=== PATIENT | female | born 1925 | race Caucasian/White ===

== ENCOUNTER 2016-05-31 21:39 | Inpatient (IN) | payer MEDICARE, MEDICAID ==
[2016-05-31] MEDS ORDERED: NS 0.9% 1000 ML* 1,600 ML IV ONE (22:27)
[2016-05-31] MEDS ORDERED: Azithromycin IV(*) 500 MG in NS 0.9% 250 ML* 250 ML IVPB ONE (22:28)
[2016-05-31] MEDS ORDERED: cefTRIAXone(*) 1 GM in NS 0.9% 50 ML* 50 ML IVPB ONE (22:28)
--- NOTE | 2016-05-31 22:40 | RAD ---
INDICATION: Fever. COMPARISON: Comparison is made with a prior CT of the chest from March 02, 2016. TECHNIQUE: A portable view of the chest was obtained. FINDINGS: The heart is mildly enlarged and unchanged. There is a dual-chamber transvenous pacemaker present. The lungs are hyperinflated. There is mild prominence of the interstitial markings which are unchanged. No focal infiltrate or pleural effusion is seen. IMPRESSION: NO EVIDENCE FOR ACUTE DISEASE.
[2016-05-31 23:10] LABS: Urine Bacteria 2+ (Absent); Urine Bilirubin Negative (Negative); Urine Glucose Negative (Negative); Urine Nitrite Negative (Negative)
[2016-05-31 23:15] LABS: Hematocrit 35 % (35-47); Hemoglobin 11.4 g/dl (12.0-16.0); Mean Corpuscular HGB Conc 33 g/dl (31-36); Mean Corpuscular Hemoglobin 30 pg (27-31); Mean Corpuscular Volume 92 fL (80-97); Mean Platelet Volume 9 um3 (7.4-10.4); Red Blood Count 3.78 10^6/ul (4.0-5.4); Red Cell Distribution Width 16 % (10.5-15); White Blood Count 3.5 10^3/ul (3.5-10.8)
[2016-05-31 23:30] LABS: Albumin 3.1 g/dL (3.2-5.2); BUN/Creatinine Ratio 17.2 (8-20); Calcium 9.6 mg/dL (8.6-10.3); EGFR African American 56.6 (>60); Globulin 2.5 g/dL (2-4); Potassium 4.6 mmol/L (3.5-5.0); Total Bilirubin 0.8 mg/dL (0.2-1.0); Total Protein 5.6 g/dL (6.4-8.9)
[2016-05-31 23:39] LABS: Troponin I 0.05 ng/mL (<0.04)
[2016-06-01] MEDS ORDERED: Aspirin TAB* 325 MG PO ONE (00:42)
[2016-06-01] MEDS ORDERED: Azithromycin IV(*) 500 MG in NS 0.9% 250 ML* 250 ML IVPB ONE (00:42)
[2016-06-01] MEDS ORDERED: Docusate CAP* 100 MG PO PRN (00:45)
[2016-06-01] MEDS ORDERED: NS 0.9% 1000 ML* 1,000 ML IV SCH (00:45)
[2016-06-01] MEDS ORDERED: Ondansetron INJ* 2 MG/ML VIAL IV PRN (00:46)
[2016-06-01] MEDS ORDERED: Acetaminophen TAB* 325 MG PO ONE (01:02)
[2016-06-01] MEDS ORDERED: Acetaminophen TAB* 325 MG ONE (01:03)
[2016-06-01] MEDS: Acetaminophen TAB* 325 MG PO PRN ×3 (01:10→22:25)
[2016-06-01] MEDS ORDERED: NS 0.9% 1000 ML* 1,000 ML IV ONE ×4 (03:00→10:15)
--- NOTE | 2016-06-01 03:24 | HP ---
ADMISSION HISTORY AND PHYSICAL: DATE OF ADMISSION: 06/01/16 PRIMARY CARE PROVIDER: Dr. Brown. HEALTHCARE PROXY: Her neighbor, Betsy Jorge. CODE STATUS: Full, reviewed with healthcare proxy, ARLENE updated and placed on chart. SOURCE OF INFORMATION: History obtained from the patient's neighbor and healthcare proxy, Betsy, from the patient, and from past medical records. RELIABILITY: Good from Betsy, poor from the patient, and good from medical records. CHIEF COMPLAINT: Chills and rigors. HISTORY OF PRESENT ILLNESS: This is an 89-year-old female, past medical history of recurrent UTIs, hypertension, hyperlipidemia, had been in her usual state of health, seen by Betsy twice daily, provides ample amount of support for the patient while she is at home. She was seen at dinner time, at which time she consumed [place] con carne completed, made by Betsy, consumed the entire quantity without difficulty. She went to bed; however, around 7:30 developed chills and rigors. She called Betsy, who came and evaluated the patient, was noted to be having rigors, was diaphoretic, had a cough, and was dry heaving. Betsy found the patient to be in distress, activated EMS, brought the patient to [facility]. Much of the history and review of systems per the patient was difficult to obtain as the patient has severely difficulty hearing and not interested in participating in clinical exam, although is oriented and is not suffering from dementia. Only complaint the patient had was pain in her right flank. Additionally, Betsy relates that the patient has lost 20 pounds over the last 4 months unintentionally. PAST MEDICAL HISTORY: Includes CVA, GI bleed, recurrent UTIs, hypertension, hyperlipidemia, breast cancer, osteoporosis, very hard of hearing. MEDICATIONS: Reviewed from Betsy's list: 1. Lipitor 80 mg daily. 2. Toprol 50 mg twice daily. 3. Aspirin 81 mg daily. 4. Calcium and vitamin D combined tab. ALLERGIES: No known drug allergies. FAMILY HISTORY: History of CAD, hypertension, or diabetes. SOCIAL HISTORY: No tobacco, alcohol, or illicit's. Lives alone. REVIEW OF SYSTEMS: As indicated above right flank pain, chills with rigors, cough, and dry heaving; otherwise, difficult to obtain. PHYSICAL EXAMINATION GENERAL: Elderly woman, lying flat in bed with her head covered. She likes to sleep. She is in no apparent distress, asking to be left alone. VITAL SIGNS: When seen by this author, 113/46, heart rate is 63, 98% on 4 L, T- max in the emergency room 102. HEENT: Oropharynx is clear. Has moist mucous membranes. Sclerae are anicteric. LUNGS: Clear to auscultation, although the patient is not taking deep breaths. HEART: It is difficult to hear, though distant heart sounds. Regular rate and rhythm. ABDOMEN: Soft, has tenderness in the suprapubic area, nondistended. Positive bowel sounds. EXTREMITIES: Warm and well perfused without clubbing, cyanosis, or edema. NEUROLOGIC: According to Betsy, the patient is alert and oriented, although currently the patient declines to participate in orientation exam. DIAGNOSTIC STUDIES/LAB DATA: Labs reviewed: White blood cell count 3.5 with 97% neutrophils, hemoglobin 11.4, platelets 171. INR 1.1. Creatinine 1.16, lactic acid 3.8. AST 102, ALT 63, alk phos 58. Troponin 0.05. Urine positive for protein, blood, leuk esterase, white blood cells, squamous cells, epithelial cells, calcium oxalate crystals, bacteria, hyaline casts, and ascorbic acid. Data reviewed: Chest x-ray, no evidence for acute disease. EKG: Normal sinus rhythm, ventricular rate 66, left axis, late R-wave progression, biphasic T-waves in V4, T-wave inversion in V5 and V6, as well as lead I and aVL. ASSESSMENT AND PLAN: An 89-year-old female, past medical history as outlined above presenting with fevers, found with sepsis of unknown source. 1. Sepsis. Most likely urine versus lungs, with urine seemingly most likely with urinalysis and history of recurrent urinary tract infections. Additionally , must rule out influenza in the setting of high fevers and rigors. Suprapubic tenderness with concern for right flank pain may indicate pyelonephritis. I do not see any CT abdomen and pelvis at this point. Treat with ceftriaxone which will cover urine and lung sources with addition of azithromycin. If the patient fails to improve, consider a CT abdomen or right upper quadrant ultrasound in the setting of elevated transaminases. Finish second liter of bolus at this time and then place on 150 cc normal saline for another liter. 2. Elevated lactic acidosis in the setting of above, repeat in 1 hour from now. 3. Elevated troponin. Suspect in the setting of demand, although has T-wave inversions elevating some strain. Repeat next troponin in an hour for now. Aspirin 325 mg now. Continue metoprolol at home dose. 4. Transaminitis. Unclear etiology at this point. As above, can consider right upper quadrant ultrasound and start with repeat LFTs in the morning. 5. Acute kidney injury in the setting of infection. Fluid as above. Trend tomorrow, dose meds accordingly. 6. DVT prophylaxis. Heparin subcu. CC: Dr. Brown* [id number]/CPS #: [id number] [id number]
[2016-06-01] MEDS: Heparin VIAL(*) 5000 UNITS/ML VIAL (FIVE THOUSAND) SUBCUT SCH ×3 (05:54→21:50)
[2016-06-01 06:15] LABS: Hematocrit 29 % (35-47); Hemoglobin 9.6 g/dl (12.0-16.0); Mean Corpuscular HGB Conc 33 g/dl (31-36); Mean Corpuscular Hemoglobin 30 pg (27-31); Mean Corpuscular Volume 92 fL (80-97); Mean Platelet Volume 9 um3 (7.4-10.4); Red Blood Count 3.19 10^6/ul (4.0-5.4); Red Cell Distribution Width 16 % (10.5-15); White Blood Count 22.3 10^3/ul (3.5-10.8)
[2016-06-01 06:20] LABS: Add Diff/Slide Review? Slide Review Added; Comments Flag Yes
[2016-06-01 06:39] LABS: Immature Granulocytes 24 % (0-9); Macrocytosis 1+; Microcytosis 1+; Neutrophil % 69 % (38-83)
[2016-06-01 06:48] LABS: Albumin 2.5 g/dL (3.2-5.2); BUN/Creatinine Ratio 16.7 (8-20); Calcium 8.4 mg/dL (8.6-10.3); Direct Bilirubin 0.2 mg/dL (0.03-0.18); EGFR African American 48.7 (>60); EGFR Non-African American 37.9 (>60); Globulin 1.9 g/dL (2-4); Indirect Bilirubin 0.3 mg/dL (0.3-1.0); Potassium 4.2 mmol/L (3.5-5.0); Total Bilirubin 0.5 mg/dL (0.2-1.0); Total Protein 4.4 g/dL (6.4-8.9)
--- NOTE | 2016-06-01 06:51 | ED ---
Chel, DoctorAna María scribed for Tess Huertas MD on 06/01/16 at 0145 . Complex/Multi-Sys Presentation - HPI Summary HPI Summary: 89 year old female arrived to [facility] c/o chills and nausea beginning at 20:00 on 05/31/2016. She further reported general weakness (similar to baseline), and has been dry-heaving (but no vomiting); she has also been sneezing frequently since arrival to [facility]. She denies any SOB, coughing, or substantial weakness beyond baseline. She has PMHx of a CVA in December 2015, PMHx of breast cancer and a Pacemaker. HPI provided by pt's band lining bander. - History Of Current Complaint Chief Complaint: EDBackInjuryPain Time Seen by Provider: 05/31/16 22:08 Hx Obtained From: Patient, Family/Wind Turbine Performance Engineer Onset/Duration: Gradual Onset, Still Present Timing: Hours Severity Currently: Moderate Severity Initially: Moderate Associated Signs And Symptoms: Positive: Weakness, Nausea, Fever, Other - Chills. Negative: SOB, Cough, Vomiting - Dry-heaving, no vomiting - Allergies/Home Medications Allergies/Adverse Reactions: Allergies Allergy/AdvReac Type Severity Reaction Status Date / Time No Known Drug Allergy Allergy See Comment Verified 02/11/15 11:38 PACEMAKER NO MRI Allergy PACEMAKER Uncoded 01/03/15 13:18 PMH/Surg Hx/FS Hx/Imm Hx Endocrine/Hematology History: Denies: Hx Diabetes, Hx Thyroid Disease Cardiovascular History: Reports: Hx Angina, Hx Auto Implanted Cardiovert Defib, Hx Hypercholesterolemia, Hx Hypertension, Hx Pacemaker/ICD, Other Cardiovascular Problems/Disorders - Bradycardia. Denies: Hx Congestive Heart Failure, Hx Coronary Artery Disease, Hx Myocardial Infarction, Hx Valvular Heart Disease Respiratory History: Denies: Hx Asthma, Hx Chronic Obstructive Pulmonary Disease (COPD) GI History: Reports: Hx Hiatal Hernia Denies: Hx Jaundice, Hx Ulcer History: Reports: Hx Kidney Stones Denies: Hx Renal Disease Musculoskeletal History: Reports: Hx Osteoporosis Sensory History: Reports: Hx Contacts or Glasses, Hx Hearing Aid, Hx Hearing Problem Denies: Hx Cataracts, Hx Eye Injury, Hx Eye Prosthesis, Hx Glaucoma, Hx Legally Blind, Hx Macular Degeneration, Hx Vision Problem, Hx Deafness, Other Sensory Impairments Opthamlomology History: Reports: Hx Contacts or Glasses Denies: Hx Cataracts, Hx Eye Injury, Hx Eye Prosthesis, Hx Glaucoma, Hx Legally Blind, Hx Macular Degeneration, Hx Vision Problem, Other Sensory Impairments Neurological History: Reports: Hx Dementia Psychiatric History: Reports: Hx Depression - Cancer History Cancer Type, Location and Year: BREAST Hx Chemotherapy: No Hx Radiation Therapy: No - Surgical History Surgery Procedure, Year, and Place: hiatal hernia - surgical repair. RIGHT BREAST MASTECTOMY. hysterectomy - Immunization History Date of Influenza Vaccine: 12/17/15 Infectious Disease History: No Infectious Disease History: Denies: Hx Clostridium Difficile, Hx Hepatitis, Hx Human Immunodeficiency Virus (HIV), Hx of Known/Suspected MRSA, Hx Shingles, Hx Tuberculosis, History Other Infectious Disease, Traveled Outside the [place] in Last 30 Days - Family History Known Family History: Positive: Cardiac Disease - CAD - Social History Lives: Alone Alcohol Use: None Hx Substance Use: No Substance Use Type: Reports: None Hx Tobacco Use: No Smoking Status (MU): Never Smoked Tobacco Review of Systems Positive: Fever, Chills Negative: Shortness Of Breath, Cough Positive: Nausea. Negative: Vomiting - Dry-heaving Positive: Weakness - generalized weakness All Other Systems Reviewed And Are Negative: Yes Physical Exam Triage Information Reviewed: Yes Vital Signs On Initial Exam: Initial Vitals Temp Pulse Resp BP Pulse Ox 102 F 66 16 112/38 92 05/31/16 21:59 05/31/16 21:59 05/31/16 21:59 05/31/16 21:59 05/31/16 21:59 Vital Signs Reviewed: Yes Appearance: Positive: Well-Appearing, No Pain Distress Skin: Positive: Warm, Skin Color Reflects Adequate Perfusion, Dry Eyes: Positive: EOMI, VELASQUEZ ENT: Positive: Pharynx normal, TMs normal Neck: Positive: Supple, Nontender Respiratory/Lung Sounds: Positive: Clear to Auscultation, Breath Sounds Present. Negative: Rales, Rhonchi, Wheezes Cardiovascular: Positive: RRR. Negative: Murmur, Rub Abdomen Description: Positive: Nontender, Soft. Negative: Distended, Guarding Bowel Sounds: Positive: Present Musculoskeletal: Positive: Strength/ROM Intact. Negative: Edema Left, Edema Right Neurological: Positive: Sensory/Motor Intact, Alert, Oriented to Person Place, Time, CN Intact II-III Psychiatric: Positive: Affect/Mood Appropriate Diagnostics - Vital Signs Vital Signs Temp Pulse Resp BP Pulse Ox 05/31/16 21:59 102 F 66 16 112/38 92 - Laboratory Lab Results: Lab Results 05/31/16 05/31/16 05/31/16 Range/Units 22:50 23:00 23:00 WBC 3.5 (3.5-10.8) 10^3/ul RBC 3.78 L (4.0-5.4) 10^6/ul Hgb 11.4 L (12.0-16.0) g/dl Hct 35 (35-47) % MCV 92 (80-97) fL MCH 30 (27-31) pg MCHC 33 (31-36) g/dl RDW 16 H (10.5-15) % Plt Count 171 (150-450) 10^3/ul MPV 9 (7.4-10.4) um3 Neut % (Auto) 96.9 H (38-83) % Lymph % (Auto) 2.2 L (25-47) % [place] % (Auto) 0.4 L (1-9) % Eos % (Auto) 0.1 (0-6) % Baso % (Auto) 0.4 (0-2) % Absolute Neuts (auto) 3.4 (1.5-7.7) 10^3/ul Absolute Lymphs (auto) 0.1 L (1.0-4.8) 10^3/ul Absolute Monos (auto) 0 (0-0.8) 10^3/ul Absolute Eos (auto) 0 (0-0.6) 10^3/ul Absolute Basos (auto) 0 (0-0.2) 10^3/ul Absolute Nucleated RBC 0 10^3/ul Nucleated RBC % 0.1 INR (Anticoag Therapy) 1.10 (0.89-1.11) APTT 29.4 (26.0-36.3) seconds Sodium (133-145) mmol/L Potassium (3.5-5.0) mmol/L Chloride (101-111) mmol/L Carbon Dioxide (22-32) mmol/L Anion Gap (2-11) mmol/L BUN (6-24) mg/dL Creatinine (0.51-0.95) mg/dL Est GFR ( Amer) (>60) Est GFR (Non-Af Amer) (>60) BUN/Creatinine Ratio (8-20) Glucose (70-100) mg/dL Lactic Acid (0.5-2.0) mmol/L Calcium (8.6-10.3) mg/dL Total Bilirubin (0.2-1.0) mg/dL AST (13-39) U/L ALT (7-52) U/L Alkaline Phosphatase (34-104) U/L Troponin I (<0.04) ng/mL Total Protein (6.4-8.9) g/dL Albumin (3.2-5.2) g/dL Globulin (2-4) g/dL Albumin/Globulin Ratio (1-3) Urine Color Lorenza Urine Appearance Cloudy Urine pH 6.0 (5-9) Ur Specific [place] 1.014 (1.010-1.030) Urine Protein 2+(100 mg/dl) H (Negative) Urine Ketones Negative (Negative) Urine Blood 1+ H (Negative) Urine Nitrate Negative (Negative) Urine Bilirubin Negative (Negative) Urine Urobilinogen Negative (Negative) Ur Leukocyte Esterase 3+ H (Negative) Urine WBC (Auto) 3+(>20/hpf) H (Absent) Urine RBC (Auto) 3+(>10/hpf) H (Absent) Ur Squamous Epith Cells Present H (Absent) Calcium Oxalate Crystal Present H (Absent) Amorphous Crystals Present H (Absent) Urine Bacteria 2+ H (Absent) Hyaline Casts Present H (Absent) Urine Glucose Negative (Negative) Urine Ascorbic Acid * H (Negative) 05/31/16 05/31/16 Range/Units 23:00 23:00 WBC (3.5-10.8) 10^3/ul RBC (4.0-5.4) 10^6/ul Hgb (12.0-16.0) g/dl Hct (35-47) % MCV (80-97) fL MCH (27-31) pg MCHC (31-36) g/dl RDW (10.5-15) % Plt Count (150-450) 10^3/ul MPV (7.4-10.4) um3 Neut % (Auto) (38-83) % Lymph % (Auto) (25-47) % [place] % (Auto) (1-9) % Eos % (Auto) (0-6) % Baso % (Auto) (0-2) % Absolute Neuts (auto) (1.5-7.7) 10^3/ul Absolute Lymphs (auto) (1.0-4.8) 10^3/ul Absolute Monos (auto) (0-0.8) 10^3/ul Absolute Eos (auto) (0-0.6) 10^3/ul Absolute Basos (auto) (0-0.2) 10^3/ul Absolute Nucleated RBC 10^3/ul Nucleated RBC % INR (Anticoag Therapy) (0.89-1.11) APTT (26.0-36.3) seconds Sodium 135 (133-145) mmol/L Potassium 4.6 (3.5-5.0) mmol/L Chloride 104 (101-111) mmol/L Carbon Dioxide 23 (22-32) mmol/L Anion Gap 8 (2-11) mmol/L BUN 20 (6-24) mg/dL Creatinine 1.16 H (0.51-0.95) mg/dL Est GFR ( Amer) 56.6 (>60) Est GFR (Non-Af Amer) 44.0 (>60) BUN/Creatinine Ratio 17.2 (8-20) Glucose 105 H (70-100) mg/dL Lactic Acid 3.8 H* (0.5-2.0) mmol/L Calcium 9.6 (8.6-10.3) mg/dL Total Bilirubin 0.80 (0.2-1.0) mg/dL AST 102 H (13-39) U/L ALT 63 H (7-52) U/L Alkaline Phosphatase 58 (34-104) U/L Troponin I 0.05 H* (<0.04) ng/mL Total Protein 5.6 L (6.4-8.9) g/dL Albumin 3.1 L (3.2-5.2) g/dL Globulin 2.5 (2-4) g/dL Albumin/Globulin Ratio 1.2 (1-3) Urine Color Urine Appearance Urine pH (5-9) Ur Specific [place] (1.010-1.030) Urine Protein (Negative) Urine Ketones (Negative) Urine Blood (Negative) Urine Nitrate (Negative) Urine Bilirubin (Negative) Urine Urobilinogen (Negative) Ur Leukocyte Esterase (Negative) Urine WBC (Auto) (Absent) Urine RBC (Auto) (Absent) Ur Squamous Epith Cells (Absent) Calcium Oxalate Crystal (Absent) Amorphous Crystals (Absent) Urine Bacteria (Absent) Hyaline Casts (Absent) Urine Glucose (Negative) Urine Ascorbic Acid (Negative) Result Diagrams: 06/01/16 05:49 06/01/16 05:49 Lab Statement: Any lab studies that have been ordered have been reviewed, and results considered in the medical decision making process. - Radiology Chest X-Ray Radiology Interpretation Completed By: Radiologist - IMPRESSION: NO EVIDENCE FOR ACUTE DISEASE. Complex Multi-Symp Course/Dx Course Of Treatment: pt presented meeting sepsis criteria 30 cc/kg of fluids and IV abx ordered pt admitted by - Diagnoses Provider Diagnoses: Sepsis - Physician Notifications Discussed Care Of Patient With: 23:00 - discussed care of pt with Dr. Hines ( hospitalist). Agrees to admit pt. Discharge - Discharge Plan Condition: Guarded Disposition: ADMITTED TO [facility] The documentation as recorded by the Doctor ferraro Tahera accurately reflects the service I personally performed and the decisions made by , Tess Huertas MD.
[2016-06-01 07:10] LABS: Troponin I 0.07 ng/mL (<0.04)
[2016-06-01] MEDS ORDERED: Metoprolol Tartrate TAB* 50 mg PO SCH (09:00)
[2016-06-01] MEDS: Aspirin EC Low Dose* 81 MG TAB.EC PO SCH (10:10)
--- NOTE | 2016-06-01 13:34 | PN ---
Subjective Date of Service: 06/01/16 Interval History: No specific c/o. States she needs to go the [facility]. Objective Active Medications: Acetaminophen (Tylenol Tab*) 650 mg PO Q6H PRN PRN Reason: PAIN Last Admin: 06/01/16 10:42 Dose: 650 mg Aspirin (Aspirin Ec Low Dose*) 81 mg PO DAILY [facility] Last Admin: 06/01/16 10:10 Dose: 81 mg Atorvastatin Calcium (Lipitor*) 80 mg PO QPM [facility] Docusate Sodium (Colace Cap*) 100 mg PO DAILY PRN PRN Reason: CONSTIPATION Heparin Sodium (Porcine) (Heparin Vial(*)) 5,000 units SUBCUT Q8HR [facility] Last Admin: 06/01/16 05:54 Dose: 5,000 units Azithromycin 250 mg/ Sodium (Chloride) 250 mls @ 250 mls/hr IVPB Q24H [facility] Ceftriaxone Sodium 1,000 mg/ (Sodium Chloride) 50 mls @ 200 mls/hr IVPB Q24H [facility] Metoprolol Tartrate (Lopressor Tab*) 50 mg PO BID [facility] Last Admin: 06/01/16 08:21 Dose: Not Given Ondansetron HCl (Zofran Inj*) 4 mg IV Q4H PRN PRN Reason: NAUSEA/VOMITING Vital Signs 06/01/16 06/01/16 06/01/16 02:51 03:00 03:29 Temperature 98.2 F 98.2 F Pulse Rate 60 60 Respiratory 20 20 Rate Blood Pressure 85/39 74/38 85/39 (mmHg) O2 Sat by Pulse 92 92 Oximetry 06/01/16 06/01/16 06/01/16 04:05 06:37 07:51 Temperature 99.4 F Pulse Rate 60 60 Respiratory 18 Rate Blood Pressure 78/38 80/38 79/35 (mmHg) O2 Sat by Pulse 96 Oximetry 06/01/16 10:15 Temperature Pulse Rate Respiratory Rate Blood Pressure 80/40 (mmHg) O2 Sat by Pulse Oximetry Oxygen Devices in Use Now: Nasal Cannula Appearance: Alert, supine in bed. In fair spirits. Sl agitated, states she needs to go the [facility]. Eyes: No Scleral Icterus Neck: NL Appearance and Movements; NL JVP, No Thyroid Enlargement, Masses Respiratory: Symmetrical Chest Expansion and Respiratory Effort, Clear to Auscultation, Clear to Percussion, - - Tachypneic Cardiovascular: NL Sounds; No Murmurs; No JVD, RRR, No Edema, - Abdominal: NL Sounds; No Tenderness; No Distention, No Hepatosplenomegaly, - Extremities: No Edema, No Clubbing, Cyanosis, - Skin: No Rash or Ulcers, No Nodules or Sclerosis, - Neurological: Alert and Oriented x 3, NL Sensation Result Diagrams: 06/01/16 05:49 06/01/16 05:49 Additional Lab and Data: Lab Results 05/31/16 05/31/16 05/31/16 Range/Units 22:50 23:00 23:00 WBC 3.5 (3.5-10.8) 10^3/ul RBC 3.78 L (4.0-5.4) 10^6/ul Hgb 11.4 L (12.0-16.0) g/dl Hct 35 (35-47) % MCV 92 (80-97) fL MCH 30 (27-31) pg MCHC 33 (31-36) g/dl RDW 16 H (10.5-15) % Plt Count 171 (150-450) 10^3/ul MPV 9 (7.4-10.4) um3 Neut % (Auto) 96.9 H (38-83) % Lymph % (Auto) 2.2 L (25-47) % [place] % (Auto) 0.4 L (1-9) % Eos % (Auto) 0.1 (0-6) % Baso % (Auto) 0.4 (0-2) % Absolute Neuts (auto) 3.4 (1.5-7.7) 10^3/ul Absolute Lymphs (auto) 0.1 L (1.0-4.8) 10^3/ul Absolute Monos (auto) 0 (0-0.8) 10^3/ul Absolute Eos (auto) 0 (0-0.6) 10^3/ul Absolute Basos (auto) 0 (0-0.2) 10^3/ul Absolute Nucleated RBC 0 10^3/ul Nucleated RBC % 0.1 INR (Anticoag Therapy) 1.10 (0.89-1.11) APTT 29.4 (26.0-36.3) seconds Sodium (133-145) mmol/L Potassium (3.5-5.0) mmol/L Chloride (101-111) mmol/L Carbon Dioxide (22-32) mmol/L Anion Gap (2-11) mmol/L BUN (6-24) mg/dL Creatinine (0.51-0.95) mg/dL Est GFR ( Amer) (>60) Est GFR (Non-Af Amer) (>60) BUN/Creatinine Ratio (8-20) Glucose (70-100) mg/dL Lactic Acid (0.5-2.0) mmol/L Calcium (8.6-10.3) mg/dL Total Bilirubin (0.2-1.0) mg/dL AST (13-39) U/L ALT (7-52) U/L Alkaline Phosphatase (34-104) U/L Troponin I (<0.04) ng/mL Total Protein (6.4-8.9) g/dL Albumin (3.2-5.2) g/dL Globulin (2-4) g/dL Albumin/Globulin Ratio (1-3) Urine Color Lorenza Urine Appearance Cloudy Urine pH 6.0 (5-9) Ur Specific [place] 1.014 (1.010-1.030) Urine Protein 2+(100 mg/dl) H (Negative) Urine Ketones Negative (Negative) Urine Blood 1+ H (Negative) Urine Nitrate Negative (Negative) Urine Bilirubin Negative (Negative) Urine Urobilinogen Negative (Negative) Ur Leukocyte Esterase 3+ H (Negative) Urine WBC (Auto) 3+(>20/hpf) H (Absent) Urine RBC (Auto) 3+(>10/hpf) H (Absent) Ur Squamous Epith Cells Present H (Absent) Calcium Oxalate Crystal Present H (Absent) Amorphous Crystals Present H (Absent) Urine Bacteria 2+ H (Absent) Hyaline Casts Present H (Absent) Urine Glucose Negative (Negative) Urine Ascorbic Acid * H (Negative) 05/31/16 05/31/16 Range/Units 23:00 23:00 WBC (3.5-10.8) 10^3/ul RBC (4.0-5.4) 10^6/ul Hgb (12.0-16.0) g/dl Hct (35-47) % MCV (80-97) fL MCH (27-31) pg MCHC (31-36) g/dl RDW (10.5-15) % Plt Count (150-450) 10^3/ul MPV (7.4-10.4) um3 Neut % (Auto) (38-83) % Lymph % (Auto) (25-47) % [place] % (Auto) (1-9) % Eos % (Auto) (0-6) % Baso % (Auto) (0-2) % Absolute Neuts (auto) (1.5-7.7) 10^3/ul Absolute Lymphs (auto) (1.0-4.8) 10^3/ul Absolute Monos (auto) (0-0.8) 10^3/ul Absolute Eos (auto) (0-0.6) 10^3/ul Absolute Basos (auto) (0-0.2) 10^3/ul Absolute Nucleated RBC 10^3/ul Nucleated RBC % INR (Anticoag Therapy) (0.89-1.11) APTT (26.0-36.3) seconds Sodium 135 (133-145) mmol/L Potassium 4.6 (3.5-5.0) mmol/L Chloride 104 (101-111) mmol/L Carbon Dioxide 23 (22-32) mmol/L Anion Gap 8 (2-11) mmol/L BUN 20 (6-24) mg/dL Creatinine 1.16 H (0.51-0.95) mg/dL Est GFR ( Amer) 56.6 (>60) Est GFR (Non-Af Amer) 44.0 (>60) BUN/Creatinine Ratio 17.2 (8-20) Glucose 105 H (70-100) mg/dL Lactic Acid 3.8 H* (0.5-2.0) mmol/L Calcium 9.6 (8.6-10.3) mg/dL Total Bilirubin 0.80 (0.2-1.0) mg/dL AST 102 H (13-39) U/L ALT 63 H (7-52) U/L Alkaline Phosphatase 58 (34-104) U/L Troponin I 0.05 H* (<0.04) ng/mL Total Protein 5.6 L (6.4-8.9) g/dL Albumin 3.1 L (3.2-5.2) g/dL Globulin 2.5 (2-4) g/dL Albumin/Globulin Ratio 1.2 (1-3) Urine Color Urine Appearance Urine pH (5-9) Ur Specific [place] (1.010-1.030) Urine Protein (Negative) Urine Ketones (Negative) Urine Blood (Negative) Urine Nitrate (Negative) Urine Bilirubin (Negative) Urine Urobilinogen (Negative) Ur Leukocyte Esterase (Negative) Urine WBC (Auto) (Absent) Urine RBC (Auto) (Absent) Ur Squamous Epith Cells (Absent) Calcium Oxalate Crystal (Absent) Amorphous Crystals (Absent) Urine Bacteria (Absent) Hyaline Casts (Absent) Urine Glucose (Negative) Urine Ascorbic Acid (Negative) Microbiology and Other Data: Microbiology 06/01/16 03:15 Nasal Screen MRSA (PCR)(YESIKA) - Final Nasal Mrsa Negative Assess/Plan/Problems-Billing Assessment: - Patient Problems (1) Sepsis Current Visit: No Status: Acute Comment: Elevated WBC, hypotension. Three bottles growing GNB. BUN and creat both higher today. Severe sepsis due to bacteremia. Source of bacteremia unknown. (2) ERASMO (acute kidney injury) Current Visit: Yes Status: Acute Code(s): N17.9 - ACUTE KIDNEY FAILURE, UNSPECIFIED SNOMED Code(s): 50024612 Comment: Rising BUN and creatinine. Likely needs more fluids. ? pressors. (3) Abnormal LFTs Current Visit: Yes Status: Acute Code(s): R79.89 - OTHER SPECIFIED ABNORMAL FINDINGS OF BLOOD CHEMISTRY SNOMED Code(s): 314817569 Comment: Better today. Low albumin despite deydration ? malnutriiton vs liver disease. Status and Disposition: Transfer to ICU 06/01. Discussed with Dr. Will.
--- NOTE | 2016-06-01 13:52 | CONSULT ---
Consult Consult: CRITICAL CARE MEDICINE DATE: 06/01/16 TIME: 1330 REFERRING PROVIDER: Jessica REASON/CHIEF COMPLAINT: severe sepsis HISTORY OF PRESENT ILLNESS: 89 F with h/o utis (recently proteus and ecoli) presenting with sepsis on admission sec to uti. BC with GNR. wbc escalating with further decline in Cr clearance despite IVF and now with declining BP and concerns for dysregulated response to infection and furthering her severe sepsis syndrome. REVIEW OF SYSTEMS: As per HPI. PAST MEDICAL HISTORY: As per HPI. HTN, Lipids, CVA, breast CA, GI bleed and hearing impairment MEDICATIONS: Reviewed. ALLERGIES: NKDA SOCIAL HISTORY: Reviewed. Has caregiver FAMILY HISTORY: Noncontributory at present. PHYSICAL EXAM: Vital Signs: Reviewed. Neurologic: awake, difficulty hearing HEENT: anicteric Cardiovascular: pacer noted, distant, nelida Respiratory: dec bs with mild labor Abdomen: soft, obese Extremities: cool to touch, no edema Access: piv LABS: Reviewed. IMAGING: Reviewed. MEDICATIONS: Reviewed. ASSESSMENT: 89 F Severe sepsis sec to uti, likely ecoli, present on admission lactic acidosis present on admission acute renal failure demand cardiac ischemia PLAN: Neurologic: hearing is an obstacle Cardiovascular: low end perfusion, giving additional fluid boluses but best to place central access and start early levophed if needed to help support perfusion pressures. Will place picc - although has pacer and opposite extremity restriction post breast ca - utlilize midline for vasopressors if needed and would prefer early use and short course. Levo concentration 4mg in 250ml. If needing long course or high strength then would need upgrade. Respiratory: sat ok but may need supportive O2 to limit any wob at this interval. don't need to fall behind with her reserve. Gastrointestinal: diet ok for now. Renal/Metabolic: check renal us to r/o pylo dynamics as she has had recurrent utis; weight loss. Infectious Disease: on C3. previous cultures here have been susceptible. She does not look overtly toxic to indicate abx failure at present, more dysregulation of inflammatory response. can consider additional bactericidal gram neg coverage if not improving. Continued C3. Hematology: she did hemodiluted some and plt down with consumption as well. f/u Endocrine: would treat for adrenal insuff with stress dose steroid needs in association with sepsis and hopefully avoid vasopressors Musculoskeletal: deconditioned. will need pt Psych/Social: social f/u Supportive and preventative care as ordered. SUP: po VTE prophylaxis: heparin Disposition: ICU with hospitalists and icu consult Code Status: Full presently Critical Care Time: 45min FJohnson Will DO
[2016-06-01] MEDS ORDERED: Norepinephrine 16MCG/ML IVPRE* 4,000 MCG/250 ML BAG IV ONE (14:18)
[2016-06-01] MEDS: Hydrocortisone INJ* 100 MG VIAL IV SCH ×2 (14:51→21:50)
[2016-06-01] MEDS: NS 0.9% 1000 ML* 2,000 ML IV ONE ×2 (14:52→15:54)
[2016-06-01] MEDS ORDERED: Aztreonam (*) 1 GM in NS 0.9% 50 ML* 50 ML IVPB ONE ×2 (15:00→17:00)
[2016-06-01] MEDS ORDERED: Morphine INJ* 2 MG/ML 1 ML SYRINGE IV PRN (15:45)
--- NOTE | 2016-06-01 15:45 | PN ---
Progress Note - Progress Note Note: CRITICAL CARE MEDICINE DATE: 06/01/16 TIME: 1530 d/w caregiver/proxy. We discussed pt dx adn care. She is clear on pts wishes. We discussed and completed molst as limited interventions, as DNR/DNI, trail NIV if provider thought there was a benefit, which I explained currently there is not. We discussed utilizing HFO2 and already using levophed. If she can turn the corner in the next 6 hours then we may have an oppurtunity for recovery , however if only worsening tonight despite these efforts then would look to maintain her comfort. Proxy in complete agreement. Molst reflective. Code Status: DNR/DNI Critical Care Time: 15min Blanco Will, DO
--- NOTE | 2016-06-01 16:15 | RAD ---
INDICATION: Right flank pain. UTI. Pyelonephritis COMPARISON: None TECHNIQUE: Longitudinal and transverse scans of the kidneys were obtained. FINDINGS: Kidneys: The right kidney measures 11.0 x 4.3 x 5.1 cm. There is a 1.1 cm cyst in the superior pole region. There is a 0.6 cm calculus in the renal pelvis. There is mild prominence of the central collecting system with no blane hydronephrosis. The left kidney appears normal and measures 10.3 x 5.2 x 4.0 cm. IMPRESSION: 0.6 cm right renal calculus with mild dilatation central collecting system.
[2016-06-01] MEDS: Atorvastatin* 80 MG TAB PO SCH (17:39)
[2016-06-01] MEDS: Norepinephrine 16MCG/ML IVPRE* 4,000 MCG/250 ML BAG IV SCH ×2 (18:58→23:04)
[2016-06-01] MEDS: cefTRIAXone VIAL(*) 1,000 MG in NS 0.9% 50 ML* 50 ML IVPB SCH (23:04)
[2016-06-02] MEDS ORDERED: Azithromycin IV(*) 250 MG in NS 0.9% 250 ML* 250 ML IVPB SCH (01:00)
[2016-06-02] MEDS: Hydrocortisone INJ* 100 MG VIAL IV SCH ×4 (02:18→19:55)
[2016-06-02] MEDS ORDERED: NS 0.9% 1000 ML* 1,000 ML IV SCH (02:45)
[2016-06-02] MEDS: Norepinephrine 16MCG/ML IVPRE* 4,000 MCG/250 ML BAG IV SCH (03:40)
[2016-06-02] MEDS: Heparin VIAL(*) 5000 UNITS/ML VIAL (FIVE THOUSAND) SUBCUT SCH ×3 (05:33→22:32)
[2016-06-02] MEDS: Acetaminophen TAB* 325 MG PO PRN ×2 (05:34→19:55)
[2016-06-02 06:31] LABS: Hematocrit 34 % (35-47); Hemoglobin 10.5 g/dl (12.0-16.0); Mean Corpuscular HGB Conc 31 g/dl (31-36); Mean Corpuscular Hemoglobin 30 pg (27-31); Mean Corpuscular Volume 94 fL (80-97); Mean Platelet Volume 10 um3 (7.4-10.4); Red Blood Count 3.55 10^6/ul (4.0-5.4); Red Cell Distribution Width 17 % (10.5-15); White Blood Count 36.1 10^3/ul (3.5-10.8)
[2016-06-02 06:34] LABS: Add Diff/Slide Review? Slide Review Added; Comments Flag Yes
[2016-06-02 06:44] LABS: ALT 54 U/L (7-52); Albumin 2.5 g/dL (3.2-5.2); Alkaline Phosphatase 54 U/L (34-104); BUN/Creatinine Ratio 26.4 (8-20); Blood Urea Nitrogen 28 mg/dL (6-24); CO2 Carbon Dioxide 15 mmol/L (22-32); Calcium 7.6 mg/dL (8.6-10.3); Chloride 115 mmol/L (101-111); EGFR African American 62.8 (>60); EGFR Non-African American 48.8 (>60); Globulin 2.4 g/dL (2-4); Glucose 120 mg/dL (70-100); Magnesium 1.5 mg/dL (1.9-2.7); Phosphorus 2.7 mg/dL (2.5-5.0); Sodium 137 mmol/L (133-145); Total Protein 4.9 g/dL (6.4-8.9)
[2016-06-02 08:08] LABS: Immature Granulocytes 13 % (0-9); Neutrophil % 87 % (38-83)
[2016-06-02 08:10] LABS: Burr Cells 1+; Hypochromasia 1+
--- NOTE | 2016-06-02 09:04 | PN ---
Progress Note - Progress Note Note: Progress Note Critical Care 24 hour events/significant events: -admitted 05/31 for severe sepsis, upgraded for shock -made DNR/DNI yesterday as per family/molst -overnight slightly less req of pressors, remains on levophed 6mcg/min -awake, alert, hard of hearing; denies any sob/cp/n/v/headache/abd discomfort. -remains on hiflow 100% 15lpm -afebrile, slow improvement in bp; no arterial line in place. -atrial paced rhythm; noted to have 6 beats nsvt overnight. Vitals: Tmax 99.6 Vital Signs Temp 98.3 F 06/02/16 08:00 Pulse 60 06/02/16 08:00 Resp 21 06/02/16 08:00 BP 108/45 06/02/16 08:00 Pulse Ox 100 06/02/16 08:00 Intake & Output 06/01/16 06/02/16 06/02/16 18:59 06:59 18:59 Intake Total 0 2064 Output Total 645 Balance 2120 1419 Intake: IV Fluids 1999 1322 Antibiotics 115 LR 925 NS (0.9%) 1999 282 Medicated IV 742 CC - Norepinephrine/ 742 Levophed Oral 120 Output: Nassar 645 Other: Date of Last Bowel 06/01/16 Movement # Bowel Movements 1 Estimated Stool Amount Medium O2/Vent: hiflow 100% 15lpm; sat 100%, rr 18 Infusions: Levophed 6mcg/min; NS infusion 100cc/hour Medications: Current Medications Acetaminophen (Tylenol Tab*) 650 mg PO Q6H PRN PRN Reason: PAIN Last Admin: 06/02/16 05:34 Dose: 650 mg Aspirin (Aspirin Ec Low Dose*) 81 mg PO DAILY [facility] Last Admin: 06/01/16 10:10 Dose: 81 mg Atorvastatin Calcium (Lipitor*) 80 mg PO QPM [facility] Last Admin: 06/01/16 17:39 Dose: 80 mg Docusate Sodium (Colace Cap*) 100 mg PO DAILY PRN PRN Reason: CONSTIPATION Last Admin: 06/01/16 17:39 Dose: 100 mg Heparin Sodium (Porcine) (Heparin Vial(*)) 5,000 units SUBCUT Q8HR [facility] Last Admin: 03/18/17 05:33 Dose: 5,000 units Hydrocortisone Sodium Succinate (Solu-Cortef*) 50 mg IV Q6H [facility] Last Admin: 06/02/16 02:18 Dose: 50 mg Ceftriaxone Sodium 1,000 mg/ (Sodium Chloride) 50 mls @ 200 mls/hr IVPB Q24H [facility] Last Admin: 06/01/16 23:04 Dose: 200 mls/hr Norepinephrine Bitartrate (Levophed 16 Mcg/Ml Premix Bag*) 4,000 mcg in 250 mls @ 18.75 mls/hr IV .INITIAL RATE [facility] PRN Reason: 5 MCG/MIN Last Admin: 06/02/16 03:40 Dose: 18.75 mls/hr Sodium Chloride (Ns 0.9% 1000 Ml*) 1,000 mls @ 100 mls/hr IV PER RATE [facility] Last Admin: 06/02/16 02:50 Dose: 100 mls/hr Morphine Sulfate (Morphine Inj (Syringe)*) 2 mg IV Q1H PRN PRN Reason: PAIN - MILD Ondansetron HCl (Zofran Inj*) 4 mg IV Q4H PRN PRN Reason: NAUSEA/VOMITING Physical Exam: General: awake, alert, no distress, no diaphoresis Head: normocephalic, atraumatic HEENT: no pallor, no icterus, moist mucous membranes Neck: no stridor, no jvd CVS: Atrial paced, normal rate, no murmur Resp: bilateral air entry, no rhales, no wheeze, mild exp rhonchi scattered; no acc muscle use. Abdomen: soft, nontender, nondistended, bs+ Ext: pulses+, warm, no edema Skin: intact, no breakdown, no dryness Neuro: awake, alert, orientedx3, moving all extremities, no gross focal deficit ; hard of hearing Labs: Laboratory Results - last 24 hr 06/02/16 06/02/16 06/02/16 06:05 06:05 06:05 WBC 36.1 H RBC 3.55 L Hgb 10.5 L Hct 34 L MCV 94 MCH 30 MCHC 31 RDW 17 H Plt Count 118 L MPV 10 Immature Gran % (Auto) 13 H Neut % (Auto) 94.6 H Lymph % (Auto) 1.2 L [place] % (Auto) 4.1 Eos % (Auto) 0 Baso % (Auto) 0.1 Absolute Neuts (auto) 34.2 H Absolute Lymphs (auto) 0.4 L Absolute Monos (auto) 1.5 H Absolute Eos (auto) 0 Absolute Basos (auto) 0 Absolute Nucleated RBC 0 Neutrophils % 87 H Band Neutrophils % 13 H Nucleated RBC % 0 Normal RBC Morphology Not Reportable Hypochromasia 1+ [place] Cells 1+ INR (Anticoag Therapy) 1.37 H Sodium 137 Potassium TNP Chloride 115 H Carbon Dioxide 15 L Anion Gap TNP BUN 28 H Creatinine 1.06 H Est GFR ( Amer) 62.8 Est GFR (Non-Af Amer) 48.8 BUN/Creatinine Ratio 26.4 H Glucose 120 H Calcium 7.6 L Phosphorus 2.7 Magnesium 1.5 L Total Bilirubin 0.50 AST TNP ALT 54 H Alkaline Phosphatase 54 Total Protein 4.9 L Albumin 2.5 L Globulin 2.4 Albumin/Globulin Ratio 1.0 06/02/16 08:15 WBC RBC Hgb Hct MCV MCH MCHC RDW Plt Count MPV Immature Gran % (Auto) Neut % (Auto) Lymph % (Auto) [place] % (Auto) Eos % (Auto) Baso % (Auto) Absolute Neuts (auto) Absolute Lymphs (auto) Absolute Monos (auto) Absolute Eos (auto) Absolute Basos (auto) Absolute Nucleated RBC Neutrophils % Band Neutrophils % Nucleated RBC % Normal RBC Morphology Hypochromasia [place] Cells INR (Anticoag Therapy) Sodium Potassium 3.0 L Chloride Carbon Dioxide Anion Gap BUN Creatinine Est GFR ( Amer) Est GFR (Non-Af Amer) BUN/Creatinine Ratio Glucose Calcium Phosphorus Magnesium Total Bilirubin AST 32 ALT Alkaline Phosphatase Total Protein Albumin Globulin Albumin/Globulin Ratio Microbiology 05/31/16 23:05 Aerobic Blood Culture - Preliminary Blood Venous Anaerobic Blood Culture - Preliminary No Growth Day 1 05/31/16 23:00 Aerobic Blood Culture - Preliminary Blood Venous Anaerobic Blood Culture - Preliminary 06/01/16 03:15 Nasal Screen MRSA (PCR)(YESIKA) - Final Nasal Mrsa Negative Noted Blood cx 05/31 - gram neg bacilli x2 bottles, and 2nd set 1 bottle; pending idenfitication Imaging: renal usg 06/01 - 0.6cm right renal calculus with mild dilated pelvis Assessment: 89y F with HTN, CVA, breast cancer in the past, GI bleeding history, hearing impairment; admitted for severe sepsis likely from UTI, upgraded to ICU for shock. -Septic Shock -Acute Hypoxic Respiratory failure -Gram negative bacteremia -UTI -ERASMO, improving, pre-renal azotemia/septic ATN -Non-gap metabolic Acidosis; hyperlactatemia resolved Plan: Neuro- stable, hard of hearing, no deficit, alert. CVS-septic shock, slowly decreasing levophed, left arm midline+. no arterial line. appears euvolemic, positive IVF balance. on NS infusion. switch to bicarb for tx of acidosis. lactic acid neg last. monitor tele for further VT. repeating chem panel for K check. IV abx for bacteremia, pending identification , on rocephin. slightly cool ext, no mottling noted. cont hydrocortisone 50mg q6h, will decrease dose tomorrow if shock improved. Resp-on 100% o2, unclear why. previous chest xray with gross infiltrate; noted hyperinflated lungs. bronchodilators q2h prn. wean down hiflow, keep sat>92%. DNR/DNI, but okay to use bipap. ID- wbc markedly elevated but clinically improved. likely reactive from sepsis and iv steroids. remains afebrile, tmax 99.6 now. on rocephine IV. Gram neg bacilli bacteremia, pending identification of organisms. covering previous e.coli and proteus urinary bugs. given aztreonam x1 dose on admission. GI-stable, cardiac diet. pepcid po for gi prophylaxis. Renal-Cr improved. Positive balance overall. doesnt appear grossly overloaded, maybe trace/mild LE edema. Metabolic acidosis+. WIll change NS to 75meq bic + 1/ 2ns infusion 75cc/hour. cont pressure support to maintian organ perfusion. renal ultrasound reviewed. cont nassar for i/o measurement while in shock. Heme-heparin sq prophylaxis, baseline anemia, no bleeding. platelet count trending down. Endo-fingerstick as needed, nondiabetic Musculsk-stable Wounds-none Nutrition-cardiac diet DVT prophylaxis:heparin sq GI prophylaxis:pepcid Central Line:left picc/midline Arterial Line:none Nassar Cathetor:yes, for i/o measurement in shock Disposition: ICU for septic shock; DNR/DNI now; cont current management with goal to keep comfortable if progression/decline. Code Status: DNR/DNI Total Critical Care time is 40 minutes, excluding procedures/teaching Kenny Montemayor MD Temp Recruiter (Electronically Signed)
[2016-06-02] MEDS: Aspirin EC Low Dose* 81 MG TAB.EC PO SCH (09:14)
[2016-06-02] MEDS ORDERED: Albuterol/Ipratropium NEB.SOL* Albuterol 2.5 MG/Ipratropium 0.5 MG 3 ML INH PRN (09:23)
[2016-06-02] MEDS ORDERED: Sodium Bicarbonate 8.4% IV* 75 MEQ in NS 0.45% 1000 ML BAG* 1,000 ML IVPB ONE (10:00)
[2016-06-02] MEDS: Atorvastatin* 80 MG TAB PO SCH (18:26)
[2016-06-02] MEDS: KCL 20 MEQ/100 ML IVPREMIX* 20 MEQ/100 ML BAG IV SCH ×2 (19:51→22:32)
[2016-06-02] MEDS: cefTRIAXone VIAL(*) 1,000 MG in NS 0.9% 50 ML* 50 ML IVPB SCH (22:33)
[2016-06-03] MEDS: Hydrocortisone INJ* 100 MG VIAL IV SCH ×2 (02:06→20:14)
[2016-06-03] MEDS: Heparin VIAL(*) 5000 UNITS/ML VIAL (FIVE THOUSAND) SUBCUT SCH ×3 (05:42→21:13)
[2016-06-03 06:06] LABS: Hematocrit 33 % (35-47); Hemoglobin 10.6 g/dl (12.0-16.0); Mean Corpuscular HGB Conc 32 g/dl (31-36); Mean Corpuscular Hemoglobin 30 pg (27-31); Mean Corpuscular Volume 92 fL (80-97); Mean Platelet Volume 10 um3 (7.4-10.4); Red Blood Count 3.58 10^6/ul (4.0-5.4); Red Cell Distribution Width 16 % (10.5-15); White Blood Count 29.5 10^3/ul (3.5-10.8)
[2016-06-03 06:11] LABS: Comments Flag Yes
[2016-06-03 06:12] LABS: Add Diff/Slide Review? Slide Review Added
[2016-06-03 06:16] LABS: BUN/Creatinine Ratio 32.9 (8-20); Calcium 7.7 mg/dL (8.6-10.3); EGFR African American 84.4 (>60); EGFR Non-African American 65.6 (>60); Potassium 4.6 mmol/L (3.5-5.0)
[2016-06-03 06:42] LABS: Immature Granulocytes 5 % (0-9); Metamyelocytes % 1 % (0-2); Neutrophil % 90 % (38-83)
[2016-06-03 06:43] LABS: Macrocytosis 1+; Microcytosis 1+
[2016-06-03] MEDS: Famotidine TAB* 20 MG PO SCH (08:49)
[2016-06-03] MEDS: Aspirin EC Low Dose* 81 MG TAB.EC PO SCH (08:49)
--- NOTE | 2016-06-03 08:49 | PN ---
Progress Note - Progress Note Note: Progress Note Critical Care 24 hour events/significant events: -weaned off pressors yesterday day, was in chair and eating, weaned off hiflow, now on NC -sleeping, awakens, hard of hearing, no distress. -off bicarb infusion -no distress noted overnight -when into Afib overnight, but rate is controlled. Vitals: Vital Signs Temp 97.7 F 06/03/16 07:43 Pulse 89 06/03/16 07:00 Resp 23 06/03/16 07:36 BP 105/45 06/03/16 07:00 Pulse Ox 100 06/03/16 07:36 Intake & Output 06/02/16 06/03/16 06/03/16 18:59 06:59 18:59 Intake Total 1431 1332 Output Total 275 800 Balance 1156 532 Intake: IV Fluids 711 926 Antibiotics 52 NS (0.9%) 100 bicarb gtt 711 774 IVPB 206 NS (0.9%) 206 Oral 720 200 Output: Urine 250 Nassar 275 550 Other: Date of Last Bowel 06/03/16 Movement Estimated Stool Amount Large O2/Vent: NC. sat 100% Infusions: none Medications: Current Medications Acetaminophen (Tylenol Tab*) 650 mg PO Q6H PRN PRN Reason: PAIN Last Admin: 06/02/16 19:55 Dose: 650 mg Albuterol/Ipratropium (Duoneb (Albuterol 2.5 Mg/Ipratropium 0.5 Mg)) 1 neb INH Q4H PRN PRN Reason: SOB/WHEEZING Aspirin (Aspirin Ec Low Dose*) 81 mg PO DAILY [facility] Last Admin: 06/03/16 08:49 Dose: 81 mg Atorvastatin Calcium (Lipitor*) 80 mg PO QPM [facility] Last Admin: 06/02/16 18:26 Dose: 80 mg Docusate Sodium (Colace Cap*) 100 mg PO DAILY PRN PRN Reason: CONSTIPATION Last Admin: 06/01/16 17:39 Dose: 100 mg Famotidine (Pepcid Tab*) 20 mg PO DAILY [facility] Last Admin: 06/03/16 08:49 Dose: 20 mg Heparin Sodium (Porcine) (Heparin Vial(*)) 5,000 units SUBCUT Q8HR [facility] Last Admin: 06/03/16 05:42 Dose: 5,000 units Heparin Sodium (Porcine) (Heparin Flush Picc/Ml/Cvc(*)) 1 - 3 ml FLUSH 0600, 1800 [facility] PRN Reason: Protocol Last Admin: 06/03/16 05:42 Dose: 1 ml Hydrocortisone Sodium Succinate (Solu-Cortef*) 50 mg IV Q24HR [facility] Last Admin: 06/03/16 08:49 Dose: 50 mg Ceftriaxone Sodium 1,000 mg/ (Sodium Chloride) 50 mls @ 200 mls/hr IVPB Q24H [facility] Last Admin: 06/02/16 22:33 Dose: 200 mls/hr Norepinephrine Bitartrate (Levophed 16 Mcg/Ml Premix Bag*) 4,000 mcg in 250 mls @ 18.75 mls/hr IV .INITIAL RATE [facility] PRN Reason: 5 MCG/MIN Last Admin: 06/02/16 03:40 Dose: 18.75 mls/hr Morphine Sulfate (Morphine Inj (Syringe)*) 2 mg IV Q1H PRN PRN Reason: PAIN - MILD Ondansetron HCl (Zofran Inj*) 4 mg IV Q4H PRN PRN Reason: NAUSEA/VOMITING Physical Exam: General: awake, alert, no distress, no diaphoresis Head: normocephalic, atraumatic HEENT: no pallor, no icterus, moist mucous membranes Neck: no stridor, no jvd CVS: irregular, normal rate, no murmur Resp: bilateral air entry, no rhales, no wheeze, mild exp rhonchi scattered; no acc muscle use. Abdomen: soft, nontender, nondistended, bs+ Ext: pulses+, warm, no edema Skin: intact, no breakdown, no dryness Neuro: awake, alert, orientedx3, moving all extremities, no gross focal deficit ; hard of hearing Labs: Laboratory Results - last 24 hr 06/03/16 06/03/16 05:54 05:54 WBC 29.5 H RBC 3.58 L Hgb 10.6 L Hct 33 L MCV 92 MCH 30 MCHC 32 RDW 16 H Plt Count 138 L MPV 10 Immature Gran % (Auto) 5 Neut % (Auto) 93.0 H Lymph % (Auto) 1.5 L [place] % (Auto) 2.9 Eos % (Auto) 2.1 Baso % (Auto) 0.5 Absolute Neuts (auto) 27.5 H Absolute Lymphs (auto) 0.5 L Absolute Monos (auto) 0.9 H Absolute Eos (auto) 0.6 Absolute Basos (auto) 0.1 Absolute Nucleated RBC 0.01 Neutrophils % 90 H Band Neutrophils % 4 Lymphocytes % 4 L Monocytes % 1 Metamyelocytes % 1 Nucleated RBC % 0 Differential Comment Normal RBC Morphology Not Reportable Microcytosis 1+ Macrocytosis 1+ Elliptocytes 1+ Sodium 136 Potassium 4.6 Chloride 112 H Carbon Dioxide 19 L Anion Gap 5 BUN 27 H Creatinine 0.82 Est GFR ( Amer) 84.4 Est GFR (Non-Af Amer) 65.6 BUN/Creatinine Ratio 32.9 H Glucose 109 H Calcium 7.7 L Microbiology 05/31/16 23:05 Aerobic Blood Culture - Final Blood Venous Escherichia Coli Anaerobic Blood Culture - Preliminary No Growth Day 2 Blood Culture - Final 05/31/16 22:50 Urine Culture - Preliminary Urine Escherichia Coli Normal Kaci 05/31/16 23:00 Aerobic Blood Culture - Final Blood Venous Escherichia Coli Anaerobic Blood Culture - Final Escherichia Coli Blood Culture - Final Imaging: renal usg 06/01 - 0.6cm right renal calculus with mild dilated pelvis Assessment: 89y F with HTN, CVA, breast cancer in the past, GI bleeding history, hearing impairment; admitted for severe sepsis likely from UTI, upgraded to ICU for shock. -Septic Shock, resolved -Acute Hypoxic Respiratory failure , resolved -E. coli Bacteremia, suspected urosepsis -UTI, e.coli+ -ERASMO, improved, pre-renal azotemia/septic ATN -Non-gap metabolic Acidosis; improved Plan: Neuro- stable, hard of hearing, no deficit, alert. CVS-shock resolved, off pressors. wean down hydrocortisone to qdaily for 2 days and then discontinue. appears euvolemic, positive IVF balance. encourage PO intake. K 4.6 today. IV abx for E.coli bacteremia. cont hydrocortisone 50mg q24 x2 days and then d/c Resp-on NC now, no resp distress. ID- WBC decreased but could be from sepsis/steroids. on Rocephin IV for e.coli bacteremia, sensitive (day 3). Repeat blood culture today. If negative then would need total of 14-21 days of IV abx for urosepsis/bacteremia. GI-stable, cardiac diet. pepcid po for gi prophylaxis. Renal-Cr improved. Positive balance overall. off IVF. Acidosis improved. Can discontinue nassar. Heme-heparin sq prophylaxis, baseline anemia, no bleeding. platelet count trending down. Endo-fingerstick as needed, nondiabetic Musculsk-stable Wounds-none Nutrition-cardiac diet DVT prophylaxis:heparin sq GI prophylaxis:pepcid Central Line:left picc/midline Arterial Line:none Nassar Cathetor:yes, for i/o measurement in shock Disposition: ICU for septic shock; resolved shock now. if remains stable, can probably be transferred to medical floor in evening. SW and discharge planning, atleast 14 days of total abx needed. PT/OT Code Status: DNR/DNI Kenny Montemayor MD Dyed Yarn Operator (Electronically Signed)
[2016-06-03] MEDS ORDERED: Hydrocortisone INJ* 100 MG VIAL IV SCH (09:00)
[2016-06-03] MEDS: Metoprolol Tartrate TAB* 25 MG PO SCH ×2 (14:23→21:13)
[2016-06-03] MEDS: Atorvastatin* 80 MG TAB PO SCH (17:50)
[2016-06-03] MEDS: cefTRIAXone VIAL(*) 1,000 MG in NS 0.9% 50 ML* 50 ML IVPB SCH (23:24)
[2016-06-04 05:19] LABS: Hematocrit 30 % (35-47); Hemoglobin 9.4 g/dl (12.0-16.0); Mean Corpuscular HGB Conc 32 g/dl (31-36); Mean Corpuscular Hemoglobin 30 pg (27-31); Mean Corpuscular Volume 93 fL (80-97); Mean Platelet Volume 11 um3 (7.4-10.4); Red Cell Distribution Width 17 % (10.5-15); White Blood Count 21.1 10^3/ul (3.5-10.8)
[2016-06-04 05:24] LABS: Comments Flag Yes
[2016-06-04 05:25] LABS: Add Diff/Slide Review? Slide Review Added
[2016-06-04 05:28] LABS: BUN/Creatinine Ratio 33.7 (8-20); Calcium 7.8 mg/dL (8.6-10.3); EGFR African American 76.8 (>60); EGFR Non-African American 59.7 (>60); Potassium 4.5 mmol/L (3.5-5.0)
[2016-06-04] MEDS: Heparin VIAL(*) 5000 UNITS/ML VIAL (FIVE THOUSAND) SUBCUT SCH ×3 (06:21→20:37)
[2016-06-04] MEDS: Aspirin EC Low Dose* 81 MG TAB.EC PO SCH (08:46)
[2016-06-04] MEDS: Famotidine TAB* 20 MG PO SCH (08:46)
[2016-06-04] MEDS: Metoprolol Tartrate TAB* 25 MG PO SCH ×2 (08:46→20:37)
--- NOTE | 2016-06-04 08:59 | PN ---
Progress Note - Progress Note Note: Progress Note Critical Care 24 hour events/significant events: -no overnight events noted -remains off pressors, restarted lopressor po yesterday -had episode of pAfib, but mostly a-pacing now. rate controlled. no further hypotension. -sleeping, no distress, on NC. Vitals: tmax 99.9 Vital Signs Temp 98.6 F 06/04/16 08:00 Pulse 60 06/04/16 07:00 Resp 22 06/04/16 07:00 BP 121/46 06/04/16 07:00 Pulse Ox 100 06/04/16 07:00 Intake & Output 06/03/16 06/04/16 06/04/16 18:59 06:59 18:59 Intake Total 990 0 Output Total 200 260 Balance 790 -260 Intake: Oral 990 0 Output: Urine 200 Nassar 260 O2/Vent: NC. sat 100% Infusions: none Medications: Acetaminophen (Tylenol Tab*) 650 mg PO Q6H PRN PRN Reason: PAIN Last Admin: 06/02/16 19:55 Dose: 650 mg Albuterol/Ipratropium (Duoneb (Albuterol 2.5 Mg/Ipratropium 0.5 Mg)) 1 neb INH Q4H PRN PRN Reason: SOB/WHEEZING Aspirin (Aspirin Ec Low Dose*) 81 mg PO DAILY [facility] Last Admin: 06/03/16 08:49 Dose: 81 mg Atorvastatin Calcium (Lipitor*) 80 mg PO QPM [facility] Last Admin: 06/03/16 17:50 Dose: 80 mg Docusate Sodium (Colace Cap*) 100 mg PO DAILY PRN PRN Reason: CONSTIPATION Last Admin: 06/01/16 17:39 Dose: 100 mg Famotidine (Pepcid Tab*) 20 mg PO DAILY [facility] Last Admin: 06/03/16 08:49 Dose: 20 mg Heparin Sodium (Porcine) (Heparin Vial(*)) 5,000 units SUBCUT Q8HR [facility] Last Admin: 06/04/16 06:21 Dose: 5,000 units Heparin Sodium (Porcine) (Heparin Flush Picc/Ml/Cvc(*)) 1 - 3 ml FLUSH 0600, 1800 [facility] PRN Reason: Protocol Last Admin: 06/04/16 06:20 Dose: 1 ml Ceftriaxone Sodium 1,000 mg/ (Sodium Chloride) 50 mls @ 200 mls/hr IVPB Q24H [facility] Last Admin: 06/03/16 23:24 Dose: 200 mls/hr Metoprolol Tartrate (Lopressor Tab*) 25 mg PO BID [facility] Last Admin: 06/03/16 21:13 Dose: 25 mg Morphine Sulfate (Morphine Inj (Syringe)*) 2 mg IV Q1H PRN PRN Reason: PAIN - MILD Ondansetron HCl (Zofran Inj*) 4 mg IV Q4H PRN PRN Reason: NAUSEA/VOMITING Physical Exam: General: awake, alert, no distress, no diaphoresis Head: normocephalic, atraumatic HEENT: no pallor, no icterus, moist mucous membranes Neck: no stridor, no jvd CVS: irregular, normal rate, no murmur Resp: bilateral air entry, no rhales, no wheeze, mild exp rhonchi scattered; no acc muscle use. Abdomen: soft, nontender, nondistended, bs+ Ext: pulses+, warm, no edema Skin: intact, no breakdown, no dryness Neuro: awake, alert, orientedx3, moving all extremities, no gross focal deficit ; hard of hearing Labs: Laboratory Results - last 24 hr 06/04/16 06/04/16 04:44 04:44 WBC 21.1 H RBC 3.20 L Hgb 9.4 L Hct 30 L MCV 93 MCH 30 MCHC 32 RDW 17 H Plt Count 138 L MPV 11 H Neut % (Auto) 91.9 H Lymph % (Auto) 4.1 L [place] % (Auto) 3.6 Eos % (Auto) 0.1 Baso % (Auto) 0.3 Absolute Neuts (auto) 19.3 H Absolute Lymphs (auto) 0.9 L Absolute Monos (auto) 0.8 Absolute Eos (auto) 0 Absolute Basos (auto) 0.1 Absolute Nucleated RBC 0 Nucleated RBC % 0 Sodium 134 Potassium 4.5 Chloride 111 Carbon Dioxide 23 Anion Gap 0 L BUN 30 H Creatinine 0.89 Est GFR ( Amer) 76.8 Est GFR (Non-Af Amer) 59.7 BUN/Creatinine Ratio 33.7 H Glucose 93 Calcium 7.8 L Microbiology 05/31/16 23:05 Aerobic Blood Culture - Final Blood Venous Escherichia Coli Anaerobic Blood Culture - Preliminary No Growth Day 3 Blood Culture - Final 05/31/16 22:50 Urine Culture - Final Urine Escherichia Coli Normal Kaci Imaging: renal usg 06/01 - 0.6cm right renal calculus with mild dilated pelvis Assessment: 89y F with HTN, CVA, breast cancer in the past, GI bleeding history, hearing impairment; admitted for severe sepsis likely from UTI, upgraded to ICU for shock. -Septic Shock, resolved -Acute Hypoxic Respiratory failure , resolved -E. coli Bacteremia, 2/2 urosepsis -UTI, e.coli+ -ERASMO, improved, pre-renal azotemia/septic ATN -Non-gap metabolic Acidosis; improved Plan: Neuro- stable, hard of hearing, no deficit, alert. CVS-off pressors. d/c hydrocortisone. on lopressor bid. making good urine. no ivf infusing. IV abx for E.coli bacteremia. Resp-on NC now, no resp distress. ID- WBC decreased. on Rocephin IV for e.coli bacteremia, sensitive (day 4). Repeat blood cultures are still pending to see if bacteremia cleared. If negative then would need total of 14-21 days of IV abx for urosepsis/ bacteremia. Left arm PICC line is in place. GI-stable, cardiac diet. pepcid po for gi prophylaxis. Renal-Cr improved. Positive balance overall, good urine output. Off IVF. Acidosis improved. D/C nassar. Heme-heparin sq prophylaxis, baseline anemia, no bleeding. platelet count trending down. Endo-fingerstick as needed, nondiabetic Musculsk-stable Wounds-none Nutrition-cardiac diet PT/OT, SW for discharge planning for shelter abx - rehab versus home with nursing care. DVT prophylaxis:heparin sq GI prophylaxis:pepcid Central Line:left picc/midline Arterial Line:none Nassar Cathetor:yes, d/c today Disposition: ICU for septic shock; resolved shock now. pending repeat blood cx. transfer to medical floor under hospitalist service, discussed yesterday. Code Status: DNR/DNI Kenny Montemayor MD Cloth Winding Supervisor (Electronically Signed)
[2016-06-04] MEDS: Atorvastatin* 80 MG TAB PO SCH (17:54)
[2016-06-04] MEDS ORDERED: cefTRIAXone VIAL(*) 1,000 MG in NS 0.9% 50 ML* 50 ML IVPB SCH (20:00)
[2016-06-05] MEDS: Heparin VIAL(*) 5000 UNITS/ML VIAL (FIVE THOUSAND) SUBCUT SCH ×3 (05:19→20:20)
[2016-06-05 05:44] LABS: Hematocrit 31 % (35-47); Hemoglobin 10.2 g/dl (12.0-16.0); Mean Corpuscular HGB Conc 33 g/dl (31-36); Mean Corpuscular Hemoglobin 30 pg (27-31); Mean Corpuscular Volume 91 fL (80-97); Mean Platelet Volume 10 um3 (7.4-10.4); Red Blood Count 3.41 10^6/ul (4.0-5.4); Red Cell Distribution Width 16 % (10.5-15); White Blood Count 11.1 10^3/ul (3.5-10.8)
[2016-06-05 05:50] LABS: Comments Flag Yes
[2016-06-05 05:51] LABS: Add Diff/Slide Review? Slide Review Added
[2016-06-05 05:58] LABS: BUN/Creatinine Ratio 31.4 (8-20); Calcium 8.2 mg/dL (8.6-10.3); EGFR African American 101.3 (>60); EGFR Non-African American 78.8 (>60); Potassium 4.2 mmol/L (3.5-5.0)
[2016-06-05 06:34] LABS: Burr Cells 1+; Microcytosis 1+
[2016-06-05] MEDS: Aspirin EC Low Dose* 81 MG TAB.EC PO SCH (09:30)
[2016-06-05] MEDS: Metoprolol Tartrate TAB* 25 MG PO SCH ×2 (09:30→20:19)
[2016-06-05] MEDS: Famotidine TAB* 20 MG PO SCH (09:30)
--- NOTE | 2016-06-05 15:42 | PN ---
Subjective Date of Service: 06/05/16 Interval History: Feels much better, stronger. Denies SOB. No Cough. Appetite OK. Anxious to go home. Has good understanding of plan so far Objective Active Medications: Acetaminophen (Tylenol Tab*) 650 mg PO Q6H PRN PRN Reason: PAIN Last Admin: 06/02/16 19:55 Dose: 650 mg Albuterol/Ipratropium (Duoneb (Albuterol 2.5 Mg/Ipratropium 0.5 Mg)) 1 neb INH Q4H PRN PRN Reason: SOB/WHEEZING Aspirin (Aspirin Ec Low Dose*) 81 mg PO DAILY [facility] Last Admin: 06/05/16 09:30 Dose: 81 mg Atorvastatin Calcium (Lipitor*) 80 mg PO QPM [facility] Last Admin: 06/04/16 17:54 Dose: 80 mg Docusate Sodium (Colace Cap*) 100 mg PO DAILY PRN PRN Reason: CONSTIPATION Last Admin: 06/01/16 17:39 Dose: 100 mg Famotidine (Pepcid Tab*) 20 mg PO DAILY [facility] Last Admin: 06/05/16 09:30 Dose: 20 mg Heparin Sodium (Porcine) (Heparin Vial(*)) 5,000 units SUBCUT Q8HR [facility] Last Admin: 06/05/16 14:23 Dose: 5,000 units Heparin Sodium (Porcine) (Heparin Flush Picc/Ml/Cvc(*)) 1 - 3 ml FLUSH 0600, 1800 [facility] PRN Reason: Protocol Last Admin: 06/05/16 05:19 Dose: 1 ml Ceftriaxone Sodium 1,000 mg/ (Sodium Chloride) 50 mls @ 200 mls/hr IVPB Q24H [facility] Metoprolol Tartrate (Lopressor Tab*) 25 mg PO BID [facility] Last Admin: 06/05/16 09:30 Dose: 25 mg Morphine Sulfate (Morphine Inj (Syringe)*) 2 mg IV Q1H PRN PRN Reason: PAIN - MILD Ondansetron HCl (Zofran Inj*) 4 mg IV Q4H PRN PRN Reason: NAUSEA/VOMITING Vital Signs 06/04/16 06/04/16 06/04/16 19:40 20:47 20:54 Temperature 97.7 F Pulse Rate 62 Respiratory 24 18 Rate Blood Pressure 135/48 (mmHg) O2 Sat by Pulse 96 96 Oximetry 06/05/16 06/05/16 06/05/16 00:14 07:47 08:00 Temperature 97.7 F 97.9 F Pulse Rate 60 82 Respiratory 24 22 22 Rate Blood Pressure 129/42 134/56 (mmHg) O2 Sat by Pulse 92 97 97 Oximetry Oxygen Devices in Use Now: Nasal Cannula Appearance: sitting in chair, hard of hearing, reads lips well, NAD Eyes: No Scleral Icterus, PERRLA Ears/Nose/Mouth/Throat: Clear Oropharnyx, Mucous Membranes Moist Neck: NL Appearance and Movements; NL JVP, Trachea Midline Respiratory: Symmetrical Chest Expansion and Respiratory Effort, Clear to Auscultation Cardiovascular: RRR Abdominal: NL Sounds; No Tenderness; No Distention, No Hepatosplenomegaly Lymphatic: No Cervical Adenopathy Extremities: - - 1+ LE edema Neurological: Alert and Oriented x 3 Result Diagrams: 06/05/16 05:20 06/05/16 05:20 Additional Lab and Data: Lab Results 05/31/16 05/31/16 05/31/16 Range/Units 22:50 23:00 23:00 WBC 3.5 (3.5-10.8) 10^3/ul RBC 3.78 L (4.0-5.4) 10^6/ul Hgb 11.4 L (12.0-16.0) g/dl Hct 35 (35-47) % MCV 92 (80-97) fL MCH 30 (27-31) pg MCHC 33 (31-36) g/dl RDW 16 H (10.5-15) % Plt Count 171 (150-450) 10^3/ul MPV 9 (7.4-10.4) um3 Neut % (Auto) 96.9 H (38-83) % Lymph % (Auto) 2.2 L (25-47) % [place] % (Auto) 0.4 L (1-9) % Eos % (Auto) 0.1 (0-6) % Baso % (Auto) 0.4 (0-2) % Absolute Neuts (auto) 3.4 (1.5-7.7) 10^3/ul Absolute Lymphs (auto) 0.1 L (1.0-4.8) 10^3/ul Absolute Monos (auto) 0 (0-0.8) 10^3/ul Absolute Eos (auto) 0 (0-0.6) 10^3/ul Absolute Basos (auto) 0 (0-0.2) 10^3/ul Absolute Nucleated RBC 0 10^3/ul Nucleated RBC % 0.1 INR (Anticoag Therapy) 1.10 (0.89-1.11) APTT 29.4 (26.0-36.3) seconds Sodium (133-145) mmol/L Potassium (3.5-5.0) mmol/L Chloride (101-111) mmol/L Carbon Dioxide (22-32) mmol/L Anion Gap (2-11) mmol/L BUN (6-24) mg/dL Creatinine (0.51-0.95) mg/dL Est GFR ( Amer) (>60) Est GFR (Non-Af Amer) (>60) BUN/Creatinine Ratio (8-20) Glucose (70-100) mg/dL Lactic Acid (0.5-2.0) mmol/L Calcium (8.6-10.3) mg/dL Total Bilirubin (0.2-1.0) mg/dL AST (13-39) U/L ALT (7-52) U/L Alkaline Phosphatase (34-104) U/L Troponin I (<0.04) ng/mL Total Protein (6.4-8.9) g/dL Albumin (3.2-5.2) g/dL Globulin (2-4) g/dL Albumin/Globulin Ratio (1-3) Urine Color Lorenza Urine Appearance Cloudy Urine pH 6.0 (5-9) Ur Specific [place] 1.014 (1.010-1.030) Urine Protein 2+(100 mg/dl) H (Negative) Urine Ketones Negative (Negative) Urine Blood 1+ H (Negative) Urine Nitrate Negative (Negative) Urine Bilirubin Negative (Negative) Urine Urobilinogen Negative (Negative) Ur Leukocyte Esterase 3+ H (Negative) Urine WBC (Auto) 3+(>20/hpf) H (Absent) Urine RBC (Auto) 3+(>10/hpf) H (Absent) Ur Squamous Epith Cells Present H (Absent) Calcium Oxalate Crystal Present H (Absent) Amorphous Crystals Present H (Absent) Urine Bacteria 2+ H (Absent) Hyaline Casts Present H (Absent) Urine Glucose Negative (Negative) Urine Ascorbic Acid * H (Negative) 03/16/17 03/16/17 Range/Units 23:00 23:00 WBC (3.5-10.8) 10^3/ul RBC (4.0-5.4) 10^6/ul Hgb (12.0-16.0) g/dl Hct (35-47) % MCV (80-97) fL MCH (27-31) pg MCHC (31-36) g/dl RDW (10.5-15) % Plt Count (150-450) 10^3/ul MPV (7.4-10.4) um3 Neut % (Auto) (38-83) % Lymph % (Auto) (25-47) % [place] % (Auto) (1-9) % Eos % (Auto) (0-6) % Baso % (Auto) (0-2) % Absolute Neuts (auto) (1.5-7.7) 10^3/ul Absolute Lymphs (auto) (1.0-4.8) 10^3/ul Absolute Monos (auto) (0-0.8) 10^3/ul Absolute Eos (auto) (0-0.6) 10^3/ul Absolute Basos (auto) (0-0.2) 10^3/ul Absolute Nucleated RBC 10^3/ul Nucleated RBC % INR (Anticoag Therapy) (0.89-1.11) APTT (26.0-36.3) seconds Sodium 135 (133-145) mmol/L Potassium 4.6 (3.5-5.0) mmol/L Chloride 104 (101-111) mmol/L Carbon Dioxide 23 (22-32) mmol/L Anion Gap 8 (2-11) mmol/L BUN 20 (6-24) mg/dL Creatinine 1.16 H (0.51-0.95) mg/dL Est GFR ( Amer) 56.6 (>60) Est GFR (Non-Af Amer) 44.0 (>60) BUN/Creatinine Ratio 17.2 (8-20) Glucose 105 H (70-100) mg/dL Lactic Acid 3.8 H* (0.5-2.0) mmol/L Calcium 9.6 (8.6-10.3) mg/dL Total Bilirubin 0.80 (0.2-1.0) mg/dL AST 102 H (13-39) U/L ALT 63 H (7-52) U/L Alkaline Phosphatase 58 (34-104) U/L Troponin I 0.05 H* (<0.04) ng/mL Total Protein 5.6 L (6.4-8.9) g/dL Albumin 3.1 L (3.2-5.2) g/dL Globulin 2.5 (2-4) g/dL Albumin/Globulin Ratio 1.2 (1-3) Urine Color Urine Appearance Urine pH (5-9) Ur Specific [place] (1.010-1.030) Urine Protein (Negative) Urine Ketones (Negative) Urine Blood (Negative) Urine Nitrate (Negative) Urine Bilirubin (Negative) Urine Urobilinogen (Negative) Ur Leukocyte Esterase (Negative) Urine WBC (Auto) (Absent) Urine RBC (Auto) (Absent) Ur Squamous Epith Cells (Absent) Calcium Oxalate Crystal (Absent) Amorphous Crystals (Absent) Urine Bacteria (Absent) Hyaline Casts (Absent) Urine Glucose (Negative) Urine Ascorbic Acid (Negative) Microbiology and Other Data: Microbiology 06/01/16 03:15 Nasal Screen MRSA (PCR)(YESIKA) - Final Nasal Mrsa Negative Assess/Plan/Problems-Billing Assessment: 89 yo F admitted with septic shock 2/2 e. coli bacteremia/urinary tract infection c/b ERASMO and hypocix respiratory failure - Patient Problems (1) Septic shock Comment: Present on admission now resolved In setting of e. coli bacteremia on CTX day 6 of -14 arranging for outpatient receipt of abx for completion (2) ERASMO (acute kidney injury) Comment: Resolved with fluids (3) UTI (urinary tract infection) Comment: E. coli + c/w CTX (4) Afib Comment: single episode metoprolol no AC (5) DVT prophylaxis Comment: HSQ
[2016-06-05] MEDS: cefTRIAXone* 1 GM in NS 0.9% 50 ML BAG IVPB SCH (17:09)
[2016-06-05] MEDS: Atorvastatin* 80 MG TAB PO SCH (17:09)
[2016-06-06] MEDS: Acetaminophen TAB* 325 MG PO PRN (01:52)
[2016-06-06] MEDS: Heparin VIAL(*) 5000 UNITS/ML VIAL (FIVE THOUSAND) SUBCUT SCH ×3 (06:03→22:11)
[2016-06-06] MEDS: Famotidine TAB* 20 MG PO SCH (08:42)
[2016-06-06] MEDS: Metoprolol Tartrate TAB* 25 MG PO SCH ×2 (08:42→22:11)
[2016-06-06] MEDS: Aspirin EC Low Dose* 81 MG TAB.EC PO SCH (08:42)
--- NOTE | 2016-06-06 15:53 | PN ---
Subjective Date of Service: 06/06/16 Interval History: Amendable to going to rehab Accepted to [facility] for tomorrow No other complaints Objective Active Medications: Acetaminophen (Tylenol Tab*) 650 mg PO Q6H PRN PRN Reason: PAIN Last Admin: 06/06/16 01:52 Dose: 650 mg Albuterol/Ipratropium (Duoneb (Albuterol 2.5 Mg/Ipratropium 0.5 Mg)) 1 neb INH Q4H PRN PRN Reason: SOB/WHEEZING Aspirin (Aspirin Ec Low Dose*) 81 mg PO DAILY [facility] Last Admin: 06/06/16 08:42 Dose: 81 mg Atorvastatin Calcium (Lipitor*) 80 mg PO QPM [facility] Last Admin: 06/05/16 17:09 Dose: 80 mg Docusate Sodium (Colace Cap*) 100 mg PO DAILY PRN PRN Reason: CONSTIPATION Last Admin: 06/01/16 17:39 Dose: 100 mg Famotidine (Pepcid Tab*) 20 mg PO DAILY [facility] Last Admin: 06/06/16 08:42 Dose: 20 mg Heparin Sodium (Porcine) (Heparin Vial(*)) 5,000 units SUBCUT Q8HR [facility] Last Admin: 06/06/16 15:38 Dose: 5,000 units Heparin Sodium (Porcine) (Heparin Flush Picc/Ml/Cvc(*)) 1 - 3 ml FLUSH 0600, 1800 [facility] PRN Reason: Protocol Last Admin: 06/06/16 06:03 Dose: 1 ml Ceftriaxone Sodium 1,000 mg/ (Sodium Chloride) 50 mls @ 200 mls/hr IVPB Q24H [facility] Last Admin: 06/05/16 17:09 Dose: 200 mls/hr Metoprolol Tartrate (Lopressor Tab*) 25 mg PO BID [facility] Last Admin: 06/06/16 08:42 Dose: 25 mg Morphine Sulfate (Morphine Inj (Syringe)*) 2 mg IV Q1H PRN PRN Reason: PAIN - MILD Last Admin: 06/06/16 03:27 Dose: 2 mg Ondansetron HCl (Zofran Inj*) 4 mg IV Q4H PRN PRN Reason: NAUSEA/VOMITING Vital Signs 06/05/16 06/05/16 06/05/16 20:00 23:30 23:40 Temperature 98.3 F Pulse Rate 71 Respiratory 20 18 Rate Blood Pressure 121/41 (mmHg) O2 Sat by Pulse 98 98 Oximetry 06/06/16 06/06/16 06/06/16 03:27 04:27 07:35 Temperature Pulse Rate Respiratory 18 16 18 Rate Blood Pressure (mmHg) O2 Sat by Pulse 98 Oximetry 06/06/16 06/06/16 07:40 10:27 Temperature 97.8 F Pulse Rate 75 76 Respiratory 18 16 Rate Blood Pressure 139/55 (mmHg) O2 Sat by Pulse 99 98 Oximetry Oxygen Devices in Use Now: Nasal Cannula Appearance: lying in bed, comfortable, NAD Eyes: No Scleral Icterus, PERRLA Ears/Nose/Mouth/Throat: Mucous Membranes Moist Neck: NL Appearance and Movements; NL JVP, Trachea Midline Respiratory: Symmetrical Chest Expansion and Respiratory Effort, Clear to Auscultation Cardiovascular: RRR Abdominal: NL Sounds; No Tenderness; No Distention, No Hepatosplenomegaly Lymphatic: No Cervical Adenopathy Extremities: No Edema Neurological: Alert and Oriented x 3, - - very hard of hearing Result Diagrams: 06/05/16 05:20 06/05/16 05:20 Additional Lab and Data: Lab Results 05/31/16 05/31/16 05/31/16 Range/Units 22:50 23:00 23:00 WBC 3.5 (3.5-10.8) 10^3/ul RBC 3.78 L (4.0-5.4) 10^6/ul Hgb 11.4 L (12.0-16.0) g/dl Hct 35 (35-47) % MCV 92 (80-97) fL MCH 30 (27-31) pg MCHC 33 (31-36) g/dl RDW 16 H (10.5-15) % Plt Count 171 (150-450) 10^3/ul MPV 9 (7.4-10.4) um3 Neut % (Auto) 96.9 H (38-83) % Lymph % (Auto) 2.2 L (25-47) % [place] % (Auto) 0.4 L (1-9) % Eos % (Auto) 0.1 (0-6) % Baso % (Auto) 0.4 (0-2) % Absolute Neuts (auto) 3.4 (1.5-7.7) 10^3/ul Absolute Lymphs (auto) 0.1 L (1.0-4.8) 10^3/ul Absolute Monos (auto) 0 (0-0.8) 10^3/ul Absolute Eos (auto) 0 (0-0.6) 10^3/ul Absolute Basos (auto) 0 (0-0.2) 10^3/ul Absolute Nucleated RBC 0 10^3/ul Nucleated RBC % 0.1 INR (Anticoag Therapy) 1.10 (0.89-1.11) APTT 29.4 (26.0-36.3) seconds Sodium (133-145) mmol/L Potassium (3.5-5.0) mmol/L Chloride (101-111) mmol/L Carbon Dioxide (22-32) mmol/L Anion Gap (2-11) mmol/L BUN (6-24) mg/dL Creatinine (0.51-0.95) mg/dL Est GFR ( Amer) (>60) Est GFR (Non-Af Amer) (>60) BUN/Creatinine Ratio (8-20) Glucose (70-100) mg/dL Lactic Acid (0.5-2.0) mmol/L Calcium (8.6-10.3) mg/dL Total Bilirubin (0.2-1.0) mg/dL AST (13-39) U/L ALT (7-52) U/L Alkaline Phosphatase (34-104) U/L Troponin I (<0.04) ng/mL Total Protein (6.4-8.9) g/dL Albumin (3.2-5.2) g/dL Globulin (2-4) g/dL Albumin/Globulin Ratio (1-3) Urine Color Lorenza Urine Appearance Cloudy Urine pH 6.0 (5-9) Ur Specific [place] 1.014 (1.010-1.030) Urine Protein 2+(100 mg/dl) H (Negative) Urine Ketones Negative (Negative) Urine Blood 1+ H (Negative) Urine Nitrate Negative (Negative) Urine Bilirubin Negative (Negative) Urine Urobilinogen Negative (Negative) Ur Leukocyte Esterase 3+ H (Negative) Urine WBC (Auto) 3+(>20/hpf) H (Absent) Urine RBC (Auto) 3+(>10/hpf) H (Absent) Ur Squamous Epith Cells Present H (Absent) Calcium Oxalate Crystal Present H (Absent) Amorphous Crystals Present H (Absent) Urine Bacteria 2+ H (Absent) Hyaline Casts Present H (Absent) Urine Glucose Negative (Negative) Urine Ascorbic Acid * H (Negative) 05/31/16 05/31/16 Range/Units 23:00 23:00 WBC (3.5-10.8) 10^3/ul RBC (4.0-5.4) 10^6/ul Hgb (12.0-16.0) g/dl Hct (35-47) % MCV (80-97) fL MCH (27-31) pg MCHC (31-36) g/dl RDW (10.5-15) % Plt Count (150-450) 10^3/ul MPV (7.4-10.4) um3 Neut % (Auto) (38-83) % Lymph % (Auto) (25-47) % [place] % (Auto) (1-9) % Eos % (Auto) (0-6) % Baso % (Auto) (0-2) % Absolute Neuts (auto) (1.5-7.7) 10^3/ul Absolute Lymphs (auto) (1.0-4.8) 10^3/ul Absolute Monos (auto) (0-0.8) 10^3/ul Absolute Eos (auto) (0-0.6) 10^3/ul Absolute Basos (auto) (0-0.2) 10^3/ul Absolute Nucleated RBC 10^3/ul Nucleated RBC % INR (Anticoag Therapy) (0.89-1.11) APTT (26.0-36.3) seconds Sodium 135 (133-145) mmol/L Potassium 4.6 (3.5-5.0) mmol/L Chloride 104 (101-111) mmol/L Carbon Dioxide 23 (22-32) mmol/L Anion Gap 8 (2-11) mmol/L BUN 20 (6-24) mg/dL Creatinine 1.16 H (0.51-0.95) mg/dL Est GFR ( Amer) 56.6 (>60) Est GFR (Non-Af Amer) 44.0 (>60) BUN/Creatinine Ratio 17.2 (8-20) Glucose 105 H (70-100) mg/dL Lactic Acid 3.8 H* (0.5-2.0) mmol/L Calcium 9.6 (8.6-10.3) mg/dL Total Bilirubin 0.80 (0.2-1.0) mg/dL AST 102 H (13-39) U/L ALT 63 H (7-52) U/L Alkaline Phosphatase 58 (34-104) U/L Troponin I 0.05 H* (<0.04) ng/mL Total Protein 5.6 L (6.4-8.9) g/dL Albumin 3.1 L (3.2-5.2) g/dL Globulin 2.5 (2-4) g/dL Albumin/Globulin Ratio 1.2 (1-3) Urine Color Urine Appearance Urine pH (5-9) Ur Specific [place] (1.010-1.030) Urine Protein (Negative) Urine Ketones (Negative) Urine Blood (Negative) Urine Nitrate (Negative) Urine Bilirubin (Negative) Urine Urobilinogen (Negative) Ur Leukocyte Esterase (Negative) Urine WBC (Auto) (Absent) Urine RBC (Auto) (Absent) Ur Squamous Epith Cells (Absent) Calcium Oxalate Crystal (Absent) Amorphous Crystals (Absent) Urine Bacteria (Absent) Hyaline Casts (Absent) Urine Glucose (Negative) Urine Ascorbic Acid (Negative) Microbiology and Other Data: Microbiology 06/01/16 03:15 Nasal Screen MRSA (PCR)(YESIKA) - Final Nasal Mrsa Negative Assess/Plan/Problems-Billing Assessment: 89 yo F admitted with septic shock 2/2 e. coli bacteremia/urinary tract infection c/b ERASMO and hypoxic respiratory failure - Patient Problems (1) Septic shock Comment: Present on admission now resolved In setting of e. coli bacteremia on CTX day 7 of 14 will finish abx at [facility] (2) ERASMO (acute kidney injury) Comment: Resolved with fluids (3) UTI (urinary tract infection) Comment: E. coli + c/w CTX (4) Afib Comment: single episode metoprolol no AC (5) DVT prophylaxis Comment: HSQ Status and Disposition: .
[2016-06-06] MEDS: cefTRIAXone* 1 GM in NS 0.9% 50 ML BAG IVPB SCH (17:57)
[2016-06-06] MEDS: Atorvastatin* 80 MG TAB PO SCH (17:57)
[2016-06-07] MEDS: Heparin VIAL(*) 5000 UNITS/ML VIAL (FIVE THOUSAND) SUBCUT SCH (06:08)
[2016-06-07 06:45] LABS: Hematocrit 33 % (35-47); Hemoglobin 10.7 g/dl (12.0-16.0); Mean Corpuscular HGB Conc 33 g/dl (31-36); Mean Corpuscular Hemoglobin 30 pg (27-31); Mean Corpuscular Volume 91 fL (80-97); Mean Platelet Volume 10 um3 (7.4-10.4); Red Blood Count 3.58 10^6/ul (4.0-5.4); Red Cell Distribution Width 17 % (10.5-15)
[2016-06-07 06:55] LABS: Calcium 8.5 mg/dL (8.6-10.3); EGFR African American 121.1 (>60); EGFR Non-African American 94.1 (>60); Potassium 4.5 mmol/L (3.5-5.0)
[2016-06-07] MEDS: Famotidine TAB* 20 MG PO SCH (09:02)
[2016-06-07] MEDS: Metoprolol Tartrate TAB* 25 MG PO SCH (09:03)
[2016-06-07] MEDS: Aspirin EC Low Dose* 81 MG TAB.EC PO SCH (09:03)
[2016-06-07 10:47] VITALS: BP 121/44
--- NOTE | 2016-06-07 11:20 | DS ---
DISCHARGE SUMMARY: DATE OF ADMISSION: 06/01/16 DATE OF DISCHARGE: 06/07/16 PRIMARY CARE PROVIDER: Dr. Brown. PRIMARY DIAGNOSIS: Septic shock. SECONDARY DIAGNOSES: Include: 1. History of cerebrovascular accident. 2. History of GI bleed. 3. History of recurrent urinary tract infections. 4. Hypertension. 5. Hyperlipidemia. 6. History of osteoporosis. 7. Hearing impairment. 8. Acute kidney injury. 9. Urinary tract infection. 10. Bacteremia. 11. Atrial fibrillation. MEDICATIONS ON DISCHARGE: Include: 1. Aspercreme topically daily as needed. 2. Ranitidine 75 mg twice daily. 3. Docusate 100 mg daily as needed for constipation. 4. Vitamin D3 of 2000 IU daily. 5. Zyrtec 10 mg daily. 6. Atorvastatin 80 mg in the evening. 7. Ascorbic acid 500 mg daily. 8. Oxycodone 5 mg every 6 hours as needed for pain. 9. Ceftriaxone 1 g at 5 p.m. for 7 additional days starting on 06/07/16 after which the PICC line can be removed. 10. Metoprolol tartrate 25 mg b.i.d. 11. Heparin flush 1 to 2 mL in the morning and evening at 6 and 5 p.m. twice daily while receiving ceftriaxone, has PICC line. 12. Aspirin 81 mg daily. 13. Albuterol/ipratropium nebulizer 1 nebulizer every 4 hours as needed for shortness of breath. 14. Acetaminophen 650 mg every 6 hours as needed for pain. PERTINENT LABORATORY DATA: White blood cell peak 36,000 downtrended to 8 on day of discharge; hemoglobin on discharge 10.7; platelets on discharge 195; BUN and creatinine on the day of discharge 18 and 0.6. PERTINENT MICROBIOLOGY: E. coli in blood and urine, garcia sensitive to all antibiotics checked. HISTORY OF PRESENT ILLNESS AND HOSPITAL COURSE: This is a pleasant 89-year-old female with the past medical history as outlined in the history of present illness on the day of admission by this author; who had been in her usual state of health until the day of admission, started to develop chills and rigors associated with diaphoresis and cough, as well as vomiting/dry heaving. The patient was brought to [facility]. She was noted to be in sepsis. Decompensated to septic shock with concomitant decrease in her blood pressure despite aggressive fluid resuscitation and rapid elevation in her white blood cell count from the time of admission. Her peak fever was 102 on presentation. She was originally admitted to general medical service, then transferred to the ICU under the strategic partnership manager where she received Levophed for blood pressure support during the septic shock. She received total of 7 days of ceftriaxone at the time of her discharge, for garcia sensitive E. coli in the urine and blood. Her creatinine peaked at 1.32 downtrended to 0.6 on the day of discharge with the resolution of acute kidney injury with fluids, volume resuscitation, antibiotics in the setting of septic shock. There were no other complications during the course of this hospital stay. Unfortunately, the patient could not return home to receive the completion of her antibiotics. Additionally, she has deconditioned in the setting of her critical illness. She will be discharged to [facility] for receipt of further antibiotics and physical therapy after which it is expected she will return home. She has a very competent and devoted care provided who is a hired service; however, also lives next to her, named Betsy. Betsy will transport Ms. Preciado to [facility] today at the completion of her discharge summary. At follow up please: 1. Ensure PICC line removed after completion of antibiotics, will complete 2 weeks of antibiotics. 2. No other specific labs or vitals that need followup. 3. Reasons to return to the hospital including but not limited to recurrent or worsening symptoms, any shortness of breath, chest pain, weakness, lightheadedness, loss of consciousness, near loss of consciousness, fevers, chills, night sweats, diaphoresis, abdominal pain, diarrhea, and bleeding from any source was discussed with the patient and she did acknowledge understanding. As noted, while the patient is hard of hearing she is perfectly oriented and able to communicate, reads the lips quite well. TIME SPENT: Greater than 45 minutes was spent on the discharge of this patient , greater than half was spent [id number] with the patient. CC: Dr. Brown.* [id number] #: [id number]
== END 2016-06-07 12:20 | DRG 871 ==
LOC: ED 21:39 → MEDTELE 06-01 00:46 → ICU 06-01 14:08 → MED 06-04 14:52
PROVIDERS: ADMIT Internal Medicine; ATTEND Internal Medicine
PROC: 3E043XZ Introduction of Vasopressor into Central Vein, Percutaneous Approach (ICD-10-PCS; principal; 2016-06-01)
PROC: 05H533Z Insertion of Infusion Device into Right Subclavian Vein, Percutaneous Approach (ICD-10-PCS; 2016-06-01)
DX: A41.51 Sepsis due to Escherichia coli [E. coli] (principal); J96.01 Acute respiratory failure with hypoxia; N17.0 Acute kidney failure with tubular necrosis; R65.21 Severe sepsis with septic shock; E87.2 Acidosis; I47.2 Ventricular tachycardia; N39.0 Urinary tract infection, site not specified; I24.8 Other forms of acute ischemic heart disease; E78.00 Pure hypercholesterolemia, unspecified; I10 Essential (primary) hypertension; M81.0 Age-related osteoporosis without current pathological fracture; H91.90 Unspecified hearing loss, unspecified ear; F03.90 Unspecified dementia, unspecified severity, without behavioral disturbance, psychotic disturbance, mood disturbance, and anxiety; F32.9 Major depressive disorder, single episode, unspecified; E78.5 Hyperlipidemia, unspecified; R79.89 Other specified abnormal findings of blood chemistry; I48.91 Unspecified atrial fibrillation; R74.0 Nonspecific elevation of levels of transaminase and lactic acid dehydrogenase [LDH]; R94.5 Abnormal results of liver function studies; Z66 Do not resuscitate; B96.20 Unspecified Escherichia coli [E. coli] as the cause of diseases classified elsewhere; N20.0 Calculus of kidney; Z86.73 Personal history of transient ischemic attack (TIA), and cerebral infarction without residual deficits; Z85.3 Personal history of malignant neoplasm of breast; Z95.0 Presence of cardiac pacemaker; Z97.4 Presence of external hearing-aid; Z90.710 Acquired absence of both cervix and uterus; Z82.49 Family history of ischemic heart disease and other diseases of the circulatory system; Z87.440 Personal history of urinary (tract) infections; Z79.82 Long term (current) use of aspirin
CPT/HCPCS: 36415; 71010; 76775; 80048; 80053; 80076; 81003; 81015; 83605; 83735; 84100; 84484; 85025; 85610; 85730; 87040; 87077; 87086; 87186; 87205; 87502; 87641; 93005; 94760; A9270-GY; C1751; J0456; J0696; J1644; J1720; J2270; J3480

== ENCOUNTER 2016-06-18 08:49 | Observation (INO) | payer MEDICARE, MEDICAID ==
[2016-06-18 09:51] LABS: Hematocrit 30 % (35-47); Hemoglobin 9.9 g/dl (12.0-16.0); Mean Corpuscular HGB Conc 33 g/dl (31-36); Mean Corpuscular Hemoglobin 31 pg (27-31); Mean Corpuscular Volume 93 fL (80-97); Mean Platelet Volume 9 um3 (7.4-10.4); Red Blood Count 3.25 10^6/ul (4.0-5.4); Red Cell Distribution Width 16 % (10.5-15); White Blood Count 8.7 10^3/ul (3.5-10.8)
--- NOTE | 2016-06-18 09:59 | ED ---
Neurological HPI - HPI Summary HPI Summary: Patient is residing at [facility] to rehab from a severe UTI with hospitalization. Her caregivers noticed when the patient awoke this AM that she appeared to have new onset of left sided weakness. The patient has a history of CVA with left sided facial drooping and slurred speech, but today she also had left arm and hand weakness. Her caregiver states the patient is at her baseline with her speech and face now. The patient said she had a "horrible headache all night" that is now mild. She denies CP, SOB, fever, or vision changes. - History of Current Complaint Chief Complaint: EDNeurologicalDeficit Stated Complaint: STROKE LIKE SYMPTOMS Time Seen by Provider: 06/18/16 09:06 Hx Obtained From: Patient Onset/Duration: Gradual Onset Timing: Constant Onset Severity: Severe Current Severity: Mild Neurological Deficit Location: LUE Character: Weak Associated Signs and Symptoms: Positive: Weakness - Additional Pertinent History Primary Care Physician: AUDREY - Allergy/Home Medications Allergies/Adverse Reactions: Allergies Allergy/AdvReac Type Severity Reaction Status Date / Time No Known Drug Allergy Allergy See Comment Verified 02/11/15 11:38 PACEMAKER NO MRI Allergy PACEMAKER Uncoded 01/03/15 13:18 Home Medications: Home Medications Acetaminophen TAB* [Tylenol TAB*] 650 mg PO Q6H PRN 06/18/16 [History Confirmed 06/18/16] Ascorbic Acid TAB* [Vitamin C TAB*] 500 mg PO DAILY 06/18/16 [History Confirmed 06/18/16] Ranitidine HCl [Zantac 75] 75 mg PO DAILY 06/18/16 [History Confirmed 06/18/16] Simvastatin (NF) [Zocor (NF)] 40 mg PO DAILY 06/18/16 [History Confirmed ] PMH/Surg Hx/FS Hx/Imm Hx Endocrine/Hematology History: Denies: Hx Diabetes, Hx Thyroid Disease Cardiovascular History: Reports: Hx Angina, Hx Auto Implanted Cardiovert Defib, Hx Hypercholesterolemia, Hx Hypertension, Hx Pacemaker/ICD, Other Cardiovascular Problems/Disorders - Bradycardia. Denies: Hx Congestive Heart Failure, Hx Coronary Artery Disease, Hx Myocardial Infarction, Hx Valvular Heart Disease Respiratory History: Denies: Hx Asthma, Hx Chronic Obstructive Pulmonary Disease (COPD) GI History: Reports: Hx Hiatal Hernia Denies: Hx Jaundice, Hx Ulcer History: Reports: Hx Kidney Stones Denies: Hx Renal Disease Musculoskeletal History: Reports: Hx Osteoporosis Sensory History: Reports: Hx Contacts or Glasses, Hx Hearing Aid, Hx Hearing Problem Denies: Hx Cataracts, Hx Eye Injury, Hx Eye Prosthesis, Hx Glaucoma, Hx Legally Blind, Hx Macular Degeneration, Hx Vision Problem, Hx Deafness, Other Sensory Impairments Opthamlomology History: Reports: Hx Contacts or Glasses Denies: Hx Cataracts, Hx Eye Injury, Hx Eye Prosthesis, Hx Glaucoma, Hx Legally Blind, Hx Macular Degeneration, Hx Vision Problem, Other Sensory Impairments Neurological History: Reports: Hx Dementia Psychiatric History: Reports: Hx Depression - Cancer History Cancer Type, Location and Year: BREAST Hx Chemotherapy: No Hx Radiation Therapy: No - Surgical History Surgery Procedure, Year, and Place: hiatal hernia - surgical repair. RIGHT BREAST MASTECTOMY. hysterectomy - Immunization History Date of Influenza Vaccine: 12/17/15 Infectious Disease History: No Infectious Disease History: Denies: Hx Clostridium Difficile, Hx Hepatitis, Hx Human Immunodeficiency Virus (HIV), Hx of Known/Suspected MRSA, Hx Shingles, Hx Tuberculosis, History Other Infectious Disease, Traveled Outside the [place] in Last 30 Days - Family History Known Family History: Positive: Cardiac Disease - CAD - Social History Occupation: Retired Lives: At [facility] [employer] Alcohol Use: None Hx Substance Use: No Substance Use Type: Reports: None Hx Tobacco Use: No Smoking Status (MU): Never Smoked Tobacco Review of Systems Negative: Fever Positive: Headache, Weakness - LUE. Negative: Paresthesia, Numbness All Other Systems Reviewed And Are Negative: Yes Physical Exam Triage Information Reviewed: Yes Vital Signs On Initial Exam: Initial Vitals Temp Pulse Resp BP Pulse Ox 99.6 F 60 20 143/54 92 06/18/16 08:59 06/18/16 08:59 06/18/16 08:59 06/18/16 08:59 06/18/16 08:59 Vital Signs Reviewed: Yes Appearance: Positive: Well-Appearing, No Pain Distress, Well-Nourished Skin: Positive: Warm, Skin Color Reflects Adequate Perfusion, Dry, Soft Head/Face: Positive: Other - left sided droop of the mouth at baseline according to caregiver Eyes: Positive: EOMI, VELASQUEZ, Conjunctiva Clear ENT: Positive: Hearing grossly normal - with hearing aides, Pharynx normal Neck: Positive: Supple, Nontender, No Lymphadenopathy Respiratory/Lung Sounds: Positive: Clear to Auscultation, Breath Sounds Present Cardiovascular: Positive: RRR Abdomen Description: Positive: Nontender, Soft Bowel Sounds: Positive: Present Musculoskeletal: Positive: Limited @ - 5/5 strength left bicep; 5/5 left wrist flexion/extension; 3/5 licensed massage therapist strength left. Negative: Edema Left, Edema Right Neurological: Positive: Sensory/Motor Intact, Alert, Oriented to Person Place, Time, CN Intact II-III, NV Bundle Intact Distally Psychiatric: Positive: Affect/Mood Appropriate AVPU Assessment: Alert Diagnostics - Vital Signs Vital Signs Temp Pulse Resp BP Pulse Ox 06/18/16 08:59 99.6 F 60 20 143/54 92 - Laboratory Result Diagrams: 06/19/16 04:32 06/19/16 04:32 Lab Statement: Any lab studies that have been ordered have been reviewed, and results considered in the medical decision making process. - CT No standard instances CT Interpretation: No Acute Changes CT Interpretation Completed By: Radiologist - EKG No standard instances Cardiac Rate: NL EKG Rhythm: Sinus Rhythm ST Segment: Normal Ectopy: None EKG Comparison: No Significant Change NIH Scale - NIH Scale Level of Consciousness: Alert/Keenly Responsive Ask Patient the Month and His/Her Age: Both Correct Ask Pt to Open/Close Eyes and Sports Physical Therapist/Release Non-Paretic Hand: Both Correctly Best Gaze (Only Horizontal Eye Movement): Normal Visual Field Testing: No Visual Loss Facial Paresis-Pt to Smile & Close Eyes or Grimace Symmetry: Minor Paralysis - at baseline as per caregiver Motor Function - Right Arm: No Drift-Holds 10 Seconds Motor Function - Left Arm: Drifts LT 10 seconds Motor Function - Right Leg: No Drift-Holds 10 Seconds Motor Function - Left Leg: No Drift-Holds 10 Seconds Limb Ataxia-Must be out of Proportion to Weakness Present: Present in One Limb - left Sensory (Use Pinprick to Test Arms/Legs/Trunk/Face): Normal Best Language (Describe Picture, Name Items): No Aphasia Dysarthria (Read Several Words): Normal Extinction and Inattention: No Abnormality Total Score: 3 Course/Dx - Course Course Of Treatment: Patient will be admitted for stroke work-up outside of the time for intervention. Although she has sequlae from her previous CVA, the LUE weakness is new. Patient is stable and will be admitted by the hospitalist with a neurology consult. - Differential Dx Differential Diagnoses Neuro: Positive: Boateng's Palsy, Cerebrovascular Accident, Coronary Artery Disease, Headache, Injury, Intracranial Bleed, Pulmonary Embolism, Seizure Disorder - Diagnoses Provider Diagnoses: LUE weakness - Physician Notifications Discussed Care of Patient With: Dr. Sanchez, ED attending; Dr. Kyle, neurology Instructed by Provider To: Admit As Inpatient Discharge - Discharge Plan Condition: Stable Disposition: ADMITTED TO [facility]
[2016-06-18 10:06] LABS: Albumin 3.1 g/dL (3.2-5.2); BUN/Creatinine Ratio 23.7 (8-20); Calcium 9.4 mg/dL (8.6-10.3); EGFR Non-African American 56.8 (>60); Potassium 4.5 mmol/L (3.5-5.0); Total Bilirubin 0.8 mg/dL (0.2-1.0); Total Protein 6.1 g/dL (6.4-8.9)
[2016-06-18 10:08] LABS: Troponin I 0.03 ng/mL (<0.04)
--- NOTE | 2016-06-18 10:31 | RAD ---
INDICATION: History of CVA. Left-sided weakness COMPARISON: CT brain January 10, 2015 TECHNIQUE: Noncontrast axial source images were acquired from the skull base to the vertex. FINDINGS: Ventricles/sulci: There is mild cortical atrophy with compensatory dilatation of the CSF spaces. Brain parenchyma: There is a old large right MCA distribution infarct. There is now encephalomalacia in this distribution. There is moderate underlying periventricular and some cortical white matter change which is consistent with chronic ischemia there are no definitive acute findings. Intracranial hemorrhage:None. Extra-axial spaces: There are no abnormal extra axial fluid collections or evidence of extra-axial mass. Calvarium: There is no calvarial fracture or other calvarial abnormality. Scalp: There is no evidence of scalp or extracalvarial soft tissue abnormality. Paranasal sinuses/mastoid: The paranasal sinuses and mastoid air cells are clear. Other: None. IMPRESSION: Old right MCA distribution infarct. Chronic microvascular ischemic change. No acute findings.
[2016-06-18] MEDS ORDERED: Aspirin EC TAB* 325 MG PO ONE (10:41)
[2016-06-18 11:35] LABS: Urine Bacteria 1+ (Absent); Urine Bilirubin Negative (Negative); Urine Glucose Negative (Negative); Urine Nitrite Positive (Negative)
[2016-06-18] MEDS ORDERED: Acetaminophen TAB* 325 MG PO PRN (12:09)
[2016-06-18 12:59] LABS: HDL Cholesterol 36.6 mg/dL
[2016-06-18] MEDS ORDERED: Enoxaparin(*) 40 MG/0.4 ML SYR SUBCUT SCH (13:00)
--- NOTE | 2016-06-18 14:40 | RAD ---
INDICATION: Left lower extremity pain and swelling. COMPARISON: Comparison is made with a prior venous duplex study from March 04, 2015. TECHNIQUE: Multiple real-time, color flow and Doppler tracings of the left lower extremity were obtained. FINDINGS: The common femoral, femoral, profunda femoral and popliteal veins all demonstrate normal compressibility, augmentation with compression and phasic response with respiration. The posterior tibial veins demonstrate normal compressibility and augmentation with compression. There is limited evaluation of the peroneal veins with flow only seen well in one of the peroneal veins. This is unchanged from the prior exam. IMPRESSION: NO EVIDENCE FOR ACUTE DEEP VENOUS THROMBOSIS.
[2016-06-18] MEDS ORDERED: cefTRIAXone VIAL(*) 1,000 MG in NS 0.9% 50 ML* 50 ML IVPB SCH (18:00)
--- NOTE | 2016-06-18 18:47 | RAD ---
Indication: Recurrent urinary tract infection. Question urolithiasis. Comparison: February 22, 2014 CT and June 01, 2016 renal ultrasound. Technique: Renal ultrasound. Report: 10.1 x 3.7 x 4.9 cm RIGHT kidney and 10.4 x 5.0 x 4.3 cm LEFT kidney. Normal bilateral renal cortical echogenicity. 0.7 cm echogenic shadowing structure at the lower pole of the RIGHT kidney is most consistent with a collecting system stone. Negative for RIGHT hydronephrosis. 0.8 cm simple cyst noted at the upper pole cortex. No LEFT renal stones, focal lesions, or hydronephrosis evident. IMPRESSION: 0.7 cm nonobstructing stone lower pole RIGHT kidney.
[2016-06-18] MEDS: Metoprolol Tartrate TAB* 25 MG PO SCH (21:41)
--- NOTE | 2016-06-18 22:37 | HP ---
MEDICINE HISTORY AND PHYSICAL: DATE OF ADMISSION: 06/18/16 PROVIDER: Ama Parr NP ATTENDING PHYSICIAN: Dr. Michael Lopez*(dictated by Ama Parr NP). CONSULTING PHYSICIAN: Dr. Kyle, Neurology. PRIMARY CARE PROVIDER: Dr. Brown. CHIEF COMPLAINT: Left facial droop. HISTORY OF PRESENT ILLNESS: Ms. Preciado is an 89-year-old female who presented to the ED today with concern for more pronounced left facial droop and left- sided weakness. History was gathered from the patient, her caregiver, and from the staff at [facility]. The patient was reportedly doing well yesterday and was noted to have a good appetite and was at her baseline neurological status. She did go to dinner with her family last night. However, last evening , she did report that she had a severe headache and this lasted throughout the night. She woke up this morning and the [facility] staff noted that she had more pronounced left facial droop from her baseline and that she had increased weakness to the left side, particularly in the left upper extremity. The patient also complained of left foot achiness last evening that has increased beyond her baseline. The patient does have a history of a previous CVA with left-sided deficit and some slurred speech at baseline; however, it was noted that these deficits were more increased this morning. [facility] contacted the family who asked that the patient be transferred here [place] [facility] [place]. At the time of my assessment and examination, the patient is in the room with her son and her healthcare proxy and director volunteer services, Betsy Jorge, who have helped contribute to this history. They report that she is currently at her baseline and has improved since being here in the ED. The patient and her family deny that she has had any recent cold or flu-like illnesses, fever, chills, chest pain, shortness of breath, or changes to her hearing, vision, or ability to swallow. They denied any focal weaknesses that are new from her baseline. PAST MEDICAL HISTORY: Significant for: 1. Previous CVA. 2. Recent urinary tract infection, requiring outpatient IV antibiotics. 3. History of GI bleed. 4. Recurrent UTI. 5. Hypertension. 6. Hyperlipidemia. 7. History of breast cancer, status post mastectomy. 8. Osteoporosis. 9. Profound hearing loss. 10. Hyperlipidemia. 11. Atrial fibrillation. HOME MEDICATIONS: 1. Acetaminophen 650 mg q.6 hours p.r.n. 2. Simvastatin 40 mg daily. 3. Cholecalciferol 2000 units daily. 4. Ranitidine 75 mg daily. 5. Metoprolol tartrate 25 mg b.i.d. 6. Aspirin 81 mg daily. 7. Ascorbic acid 500 mg daily. ALLERGIES: No known drug allergies. FAMILY HISTORY: Unable to obtain from the patient and family is unable to contribute. SOCIAL HISTORY: The patient denies tobacco, alcohol, or illicit drug use. She lives at [facility]. Her healthcare proxy is Betsy Jorge, who is her director volunteer services. She does have a son, who is local. His name is Raman Preciado. REVIEW OF SYSTEMS: All pertinent positives and negatives are included in the HPI. All those not mentioned are negative per the patient and her family. PHYSICAL EXAMINATION GENERAL: This is an elderly female, who is lying in the ED stretcher. She is sleeping, but does easily arouse to tactile stimuli. She is in no apparent distress. VITAL SIGNS: Temperature 98.2, heart rate 60, respiratory rate 20, blood pressure 126/48, and O2 saturation 98% on 2 L nasal cannula. HEENT: Head is atraumatic, normocephalic. There appears to be a mild left facial droop; however, it is difficult to see as the patient does like to left lean and will not hold her head straight. Oral mucosa appears moist. Oropharynx is clear with no exudate or erythema noted. NECK: Supple. No lymphadenopathy appreciated. RESPIRATORY: Lungs are clear to auscultation with no accessory muscle use. CARDIAC: S1, S2 heart sounds. Regular rate and rhythm. No murmurs, rubs, or gallops. There is mild peripheral edema with trace pretibial edema noted. Distal pulses are symmetrical. ABDOMEN: Soft, nontender, nondistended. Bowel sounds present times all 4 quadrants. MUSCULOSKELETAL: Difficult to assess as the patient is not following directions. There appears to be no clubbing or cyanosis. The patient has 3/5 logistics analytics manager strength in the left upper extremity. No pronator drift noted. The patient will not keep her legs lifted upon command, although reportedly can do so at home. SKIN: Appears grossly intact anteriorly. Assessment limited. NEUROLOGIC: The patient is moving all extremities. Left upper extremity weakness noted. Sensation is intact to light touch. The patient is oriented to self and place though mildly confused at times. LABORATORY DATA AND DIAGNOSTIC STUDIES: CBC: WBC 8.7, hemoglobin 9.9, hematocrit 30, platelet count 349. INR is 1.03. CMP: Sodium 135, potassium 4.5, chloride 105, carbon dioxide 24, BUN 22, creatinine 0.93, glucose 104, lactic acid 0.8, calcium 9.4. Total bilirubin 0.8, AST 24, ALT 29, alk phos 67. Troponin 0.03. Albumin 3.1. Triglycerides 51, cholesterol 98, LDL 51, HDL 36.6. Urinalysis significant for 2+ blood, nitrites, leukocyte esterase, wbc's , rbc's, and bacteria. The patient's EKG shows atrial paced rhythm and left bundle-branch block, which was noted on previous EKG. CT of the brain shows an old right MCA distribution infarct. Chronic microvascular ischemic change. No acute findings. Old medical records were reviewed. ASSESSMENT AND PLAN: Ms. Preciado is an 89-year-old female who presents today with concern for left-sided neurological deficit that has now resolved. We will admit her under OBV status for neurological monitoring and further workup with concern for cerebrovascular accident versus seizure versus transient ischemic attack. Plan is as follows: 1. Left-sided weakness, now resolved: Admit to telemetry. Neurology was consulted in the ER and will see the patient. Per the recommendations, a CT and MRI are warranted as well as an EEG. The patient was unable to have an MRI due to her pacemaker. An EEG is pending. Neurological checks will be done by nursing and we are awaiting a dysphagia screening to evaluate for safety of swallowing. The patient does appear to be at baseline neurologically although she is not fully following commands. However, her family states this has been consistent with her baseline personality and that she does not always like to cooperate. She does have risk factors for transient ischemic attack and cerebrovascular accident, which include atrial fibrillation. She is apparently not on anticoagulation due to history of GI bleed, although the family was unsure of this. We will order her PT and appreciate neurological evaluation and input. 2. Recent urinary tract infection, status post IV antibiotic therapy treatment : The patient does have a UA that is notable for nitrites, leukocyte esterase, wbc, and bacteria. However, the patient denies any dysuria and has been afebrile. She is back at her baseline and she has recently completed IV ceftriaxone as an outpatient. At this point in time, I will start Ceftriaxone in the presence of a change in mental status and ask for ID consult. Notably, she has no leukocytosis. Her lactic acid is normal. She is afebrile and her vital signs are stable. This may represent colonization of the same bacteria, although I was unclear if this is a new infection or extension of her previous infection. We will check post void residuals and a renal ultrasound to try and determine why the patient has recurrent UTI. 3. Hypertension: Continue home metoprolol tartrate. 4. History of atrial fibrillation: Continue metoprolol tartrate. 5. Hyperlipidemia: Continue statin. 6. History of osteoporosis: Continue vitamin supplement. 7. FEN: The patient will be ordered a heart healthy diet once she is able to pass her swallow screen. 8. DVT prophylaxis: She is ordered subcu Lovenox. 9. Code status: The patient is a DNR and the MOLST form has been updated and is on the chart. 10. Disposition: Admit to telemetry under observation. Discharge to [facility] when medically stable. TIME SPENT: Time spent on this admission was approximately 60 minutes, more than half that time was spent [id number] with the patient obtaining history and physical, performing the physical examination, and reviewing the plan of care. Plan of care was also reviewed with my attending, Dr. Lopez, who is in agreement. AMA PARR NP CC: Dr. Brown* [id number]/[facility] #: [id number] NIKKI
[2016-06-19 04:51] LABS: Hematocrit 28 % (35-47); Hemoglobin 9.3 g/dl (12.0-16.0); Mean Corpuscular HGB Conc 33 g/dl (31-36); Mean Corpuscular Hemoglobin 30 pg (27-31); Mean Corpuscular Volume 92 fL (80-97); Mean Platelet Volume 9 um3 (7.4-10.4); Red Blood Count 3.07 10^6/ul (4.0-5.4); Red Cell Distribution Width 16 % (10.5-15); White Blood Count 8.7 10^3/ul (3.5-10.8)
[2016-06-19 05:08] LABS: BUN/Creatinine Ratio 24.4 (8-20); Calcium 8.9 mg/dL (8.6-10.3); EGFR African American 84.4 (>60); EGFR Non-African American 65.6 (>60); Potassium 4.2 mmol/L (3.5-5.0)
[2016-06-19] MEDS ORDERED: Aspirin EC Low Dose* 81 MG TAB.EC PO SCH (09:00)
[2016-06-19] MEDS ORDERED: Ascorbic Acid TAB* 500 MG PO SCH (09:00)
[2016-06-19] MEDS ORDERED: Cholecalciferol TAB* 1000 UNITS PO SCH (09:00)
[2016-06-19] MEDS ORDERED: Famotidine TAB* 20 MG PO SCH (09:00)
[2016-06-19] MEDS ORDERED: Atorvastatin* 20 MG TAB PO SCH (09:00)
[2016-06-19] MEDS: Metoprolol Tartrate TAB* 25 MG PO SCH (09:16)
[2016-06-19 13:13] VITALS: BP 119/50
--- NOTE | 2016-06-19 13:40 | DS ---
DATE OF ADMISSION: 06/18/2016. DATE OF DISCHARGE: 06/19/2016. PRIMARY CARE PROVIDER: Dr. Brown. PRIMARY DIAGNOSIS: Urinary tract infection. SECONDARY DIAGNOSES: 1. Nephrolithiasis, right sided, asymptomatic. 2. History of right MCA stroke. 3. Recurrent urinary tract infections. 4. Hypertension. 5. Hyperlipidemia. 6. History of breast cancer. 7. Osteoporosis. 8. Hearing loss. 9. Hyperlipidemia. 10. Atrial fibrillation. MEDICATIONS ON DISCHARGE: 1. Acetaminophen 650 mg every 6 hours as needed for pain. 2. Simvastatin 40 mg daily. 3. Vitamin D3 2000 international units daily. 4. Zantac 75 mg daily. 5. Metoprolol tartrate 25 mg daily. 6. Aspirin 81 mg daily. 7. Ascorbic acid 500 mg daily. 8. Ciprofloxacin 500 mg twice daily for 7 days, please note the addition of new antibiotic. Okay to restart previous medications and therapies. PERTINENT IMAGING STUDIES: 1. Brain CT: Impression: Old right MCA distribution infarct. 2. Lower extremity venous Doppler study: No evidence for acute DVT. 3. Renal ultrasound: Impression: 0.7 cm nonobstructing stone in the lower pole of the right kidney. PERTINENT MICROBIOLOGY: Urine positive for pseudomonas aeruginosa greater than 100,000 CFU/ml. HISTORY OF PRESENT ILLNESS AND HOSPITAL COURSE: This is an 89-year-old female with a past medical history as outlined in the history of present illness on the day of admission. Recent hospital stay at [facility] [place] with septic shock requiring Levophed, IV antibiotics for E. coli bacteremia, discharged to [facility] where she completed her course of antibiotics and had been feeling improved, however developed what was described as a more pronounced/increased left facial droop and left-sided weakness. She was referred to the emergency room. All reports indicate deficits had resolved by the time she reached the emergency room. In conversation with the patient, she indicates she did not have any weakness, but noted pain in her left hand as well as headache preceding the event. She currently has no complaints, including no complaints other than occasional urinary hesitancy which is not new. She was treated with Ceftriaxone , transitioned to Ciprofloxacin at the time of discharge. She cannot receive an MRI secondary to her permanent pacemaker. I have low suspicion for TIA in this patient at this point with conflicting history for presenting symptoms, although patient indicating she did not have weakness. In my care of this patient during her previous hospital stay, she is noted to be a good historian, although she has much difficulty hearing. I suspect she may have had recrudescence of her left-sided weakness in the setting of current urinary tract infection or misunderstanding of her symptoms or potentially hemiplegia with migraine symptoms presented with headache. In the setting of resolution of her symptoms, she will be continued on aspirin, no additional Plavix will be added. She is indicated to return should symptoms return. Care was discussed with the patient as well as her daughter and son, all questions were answered. She will be referred to Dr. Torre in the setting of recurrent urinary tract infections and now nephrolithiasis that is not obstructing or symptomatic. AT FOLLOW-UP, PLEASE: 1. Please ensure resolution of symptoms on Ciprofloxacin. Please follow for pseudomonal sensitivities. 2. Please ensure patient follows with urologist as indicated above. REASONS TO RETURN TO THE HOSPITAL: Including, but not limited to recurrent or worsening symptoms including weakness, numbness, headache, chest pain, shortness of breath, nausea, vomiting, lightheadedness, difficulty urinating, burning when urinating, urinating more frequently, or urinary hesitancy, bleeding from any source, or inability to obtain or tolerate medications were discussed with the patient and her family, they acknowledged understanding. Greater than 60 minutes were spent on this discharge with greater than half spent [id number] with the patient. CC: Dr. Brown* [id number]/[facility] #: [id number] NIKKI
--- NOTE | 2016-06-19 15:30 | EEG ---
ELECTROENCEPHALOGRAPHY: DATE OF STUDY: 06/18/16 - ROOM #441 REFERRING PROVIDER: Dr. Lopez. LOCATION: She is an inpatient in [address] [place] [address]. CLINICAL PROBLEM: History of right hemisphere stroke. The patient awoke with new and worsened left-sided weakness the morning of this recording. MEDICATIONS: Include aspirin only. REPORT: A 16-channel EEG is remarkable for background activity consisting of diffuse and prominent slowing from the right hemisphere. Posterior rhythms on the left approximate 8 cycles per second with slower rhythms seen bifrontally. There is also some intermingled slow delta activity in the left frontal regions. The patient is clinically awake. Occasionally, there is a phase reverse in sharp wave from the left parasagittal area. Sleep stages are not clearly recognized. Activation procedures are not attempted. CLINICAL IMPRESSION: Abnormal EEG due to diffuse slowing from the right hemisphere. There are occasional sharp waves from the left parasagittal area __ ___ the possibility of an epileptiform focus in that location. This tracing will be compatible with either postictal dysfunction from the right hemisphere or diffuse slowing from a cerebrovascular event. [id number]/[facility] #: [id number] [facility]QUARE HOSPITALKim
--- NOTE | 2016-06-19 18:53 | CONS ---
NEUROLOGY CONSULT REPORT: DATE OF CONSULT: 06/19/16 REFERRING PROVIDER: Juju Garcia NP CHIEF COMPLAINT: Left-sided weakness. HISTORY OF PRESENT ILLNESS: Betina Preciado is an 89-year-old right-handed woman, who presented to the emergency room yesterday with transient worsening of her chronic left-sided weakness. The history is from the patient to some extent, but also from discussions with Sage Ling NP, in the emergency room yesterday; Juju Garcia NP; the medical record. 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 She has atrial fibrillation and my understanding is she was discharged on anticoagulation. She was hospitalized with rectal bleeding and drop in her hematocrit and at that time she was just on Plavix and that was earlier this past year. She apparently woke with worsening left-sided weakness the day of admission yesterday. By the time she came into the emergency room, it was felt that she returned to her baseline according to Juju Garcia's history and physical and Sage Ling's evaluation in the emergency department. This was corroborated by the patient's son who is in the emergency room. The patient is a poor historian and only knows that she woke up having had a bad night with leg pain. She says she did not have leg pain right now. She says it is mainly her left leg. She is not aware of any worsened weakness on one side or the other. There is no history of seizures or other transient episodes of left- sided weakness other than the stroke in 2014, and the episode yesterday morning. There were no unusual laboratory features yesterday when she came in and she remained anemic with hemoglobin of 9.9 yesterday down from 10.7 on 06/07. She had an EEG yesterday, which I reviewed, which revealed diffuse slowing from the right hemisphere. There were no epileptiform discharges. 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 She has a pacemaker, and so an MRI is contraindicated. PAST MEDICAL HISTORY: Otherwise notable for intermittent atrial fibrillation; hospitalization for urosepsis earlier this year; history of at least rectal bleeding if not gastrointestinal bleeding; hypertension; hyperlipidemia, on statins; osteoporosis; breast cancer, treated with mastectomy; recurrent urinary tract infections. MEDICATIONS: At [facility] consist of: 1. Aspirin 81 mg p.o. q. day. 2. Ascorbic acid 500 mg p.o. q. day. 3. Metoprolol 25 mg p.o. b.i.d. 4. Simvastatin 40 mg p.o. q. day. 5. Vitamin D 2000 units p.o. q. day. 6. Ranitidine 75 mg p.o. q. day. 7. Acetaminophen 650 mg p.o. q.6 hours p.r.n. ALLERGIES: She did not have any drug allergies according to computer records. SOCIAL HISTORY: According to computer records, she is a nonsmoker and has no history of alcohol abuse. REVIEW OF SYSTEMS: From the patient, negative for headache currently, she does get headaches occasionally. Negative for leg pain currently. She complained of left leg pain from yesterday. She has chronic weakness in the left side which she attributes to her stroke. She is very hard of hearing. She denies any other muscle pain or soreness. There is no history of faints or seizures. She denies shortness of breath or chest pain currently. PHYSICAL EXAM: She is a thin, but well-hydrated elderly woman, lying in her hospital bed. Temperature was 99.6 temporally when she came in, 98.7 most recently orally. Blood pressures 136/68, heart rate 80 and regular, respirations 20, oxygen saturation 94% on supplemental oxygen 2 L per nasal cannula. Lungs reveal few scattered wheezes. Heart is in an irregular rhythm, but I do not hear murmurs. Carotid pulses are present and I do not hear any bruits. Oral mucosa is moist and atraumatic. Neck is supple for age. Neurologically, pupils react equally from 3 to 2 mm. Funduscopic exam reveals arteriolar tortuosity and silver wiring. Visual sr are notable for a left hemianopsia. Facial musculature revealed some mild flattening of the left nasolabial fold. Facial sensation is symmetric. Palate and tongue appear normal and she has a mild buccolingual dysarthria. Tongue protrudes in the midline. Motor exam reveals a mild spastic catch in the left arm. She has a mild left pronator drift. She has mild left hip flexor weakness and she has grade 4- left ankle dorsiflexor weakness. She has a reasonably good strength on the right. There is no drift of the legs. Reflexes are bit brisker on the right side than the right. She has a left Babinski sign. Sensory exam notable for diminished pin in the left arm and leg. She is alert and a poor historian with poor memory. She is very hard of hearing further compromising communication. She has fluent language. DIAGNOSTIC STUDIES/LAB DATA: Includes unremarkable chemistry profile, glucose 116 this morning. Troponin 0.03 yesterday. Last cholesterol, on 06/18/16, ____ _, LDL 51. Hemoglobin A1c, 01/06/15, 5.3%. CBC again notable for anemia with hemoglobin of 9.3, which is down from yesterday when it was 9.9. Platelet count 304,000. Coags notable for normal INR 1.03. CT scan of the brain as described above. EEG as described above. CT angiogram of the head from 01/05/15 showed minimal atherosclerotic changes of the extracranial carotid arteries. There was no large vessel intracranial stenosis either. Transthoracic echocardiogram, 01/05/15, notable for mildly dilated left atrium, the patient was in atrial fibrillation. There were no significant valvular abnormalities. A pacemaker was present. IMPRESSION AND PLAN: Impression is that of a possible right middle cerebral artery transient ischemic attack or just is what likely a postictal paralysis from a seizure in her sleep. Her EEG did show diffuse slowing from the right hemisphere but no ictal discharges. I do not think there is enough evidence to put her on an anticonvulsant at this point. With her history of anemia and gastrointestinal bleeding and the unclear etiology of this most recent spell, I would stick with aspirin antiplatelet therapy. I am not aware if any evidence that Plavix provides better protection against stroke than aspirin in the setting of atrial fibrillation. Conversely, I would be very reluctant to fully anticoagulate her with history of gastrointestinal bleeding and anemia. I will discuss my impression with Juju Garcia NP. CC: Milton Hunter * [id number]/[facility] #: [id number]
== END 2016-06-19 13:14 ==
LOC: ED 08:49 → MEDTELE 11:14
PROVIDERS: ADMIT Internal Medicine; ATTEND Internal Medicine
DX: N39.0 Urinary tract infection, site not specified (principal); N20.0 Calculus of kidney; R53.1 Weakness; I10 Essential (primary) hypertension; E78.5 Hyperlipidemia, unspecified; M81.0 Age-related osteoporosis without current pathological fracture; I48.91 Unspecified atrial fibrillation; Z79.899 Other long term (current) drug therapy; Z86.73 Personal history of transient ischemic attack (TIA), and cerebral infarction without residual deficits; Z85.3 Personal history of malignant neoplasm of breast; Z95.0 Presence of cardiac pacemaker; I44.7 Left bundle-branch block, unspecified; R94.01 Abnormal electroencephalogram [EEG]; M79.662 Pain in left lower leg; M79.89 Other specified soft tissue disorders
CPT/HCPCS: 36415; 70450; 76775; 80048; 80053; 80061; 81003; 81015; 83605; 84484; 85025; 85610; 87077; 87086; 87186; 87641; 93005; 94760; 95822; 96365; 96372; 99283; A9270-GY; G0378; G8978-GP-CM; G8979-GP-CJ; G8996-GN-CL; G8997-GN-CJ; J0696; J1650